=== PATIENT | male | born 1980 | race Caucasian/White ===

== ENCOUNTER 2018-08-16 14:14 | Inpatient (IN) | payer MEDICARE, MEDICAID ==
[~2018-08-16] VITALS: Ht 182.9 cm; Wt 105.0 kg
[2018-08-16 16:44] LABS: HEMATOCRIT 47.2 % (39.0-50.0); HEMOGLOBIN 16.5 g/dl (14.0-18.0); IMMATURE GRANULOCYTES 0.6 % (0.0-5.0); MEAN CELL VOLUME 89.4 fL CALC (80.0-100.0); MEAN CORPUSCULAR HGB 31.3 pG CALC (26.0-32.0); NEUT# 5.85 thou/uL (1.82-7.42); RED BLOOD COUNT 5.28 mill/uL (4.70-6.10)
[2018-08-16 16:47] LABS: ALBUMIN 4.5 g/dL (3.2-5.0); ALKALINE PHOSPHATASE 156 u/l (38-126); ANION GAP 17 (6-22 (CALC)); BILIRUBIN, TOTAL 0.9 mg/dL (0.0-1.4); BUN 13 mg/dL (9-20); BUN/CREATININE RATIO 21 (12-20 (CALC)); CARBON DIOXIDE 26 mmol/l (22-30); CHLORIDE 97 mmol/l (95-108); CREATININE 0.6 mg/dL (0.7-1.3); GFR > 60 ML/MIN (>=60 (CALC)); GFR FOR AFR.AMER. > 60 ML/MIN (>=60 (CALC)); POTASSIUM 3.3 mmol/l (3.5-5.1); SGOT/AST 21 u/l (17-59); SODIUM 137 mmol/l (137-146)
[2018-08-16] MEDS ORDERED: PERCOCET1 TA4 PO (17:15)
[2018-08-16] MEDS ORDERED: MORPHINE SUL15 MG PO (17:16)
[2018-08-16] MEDS ORDERED: LORTAB 1010 MG PO (17:16)
[2018-08-16] MEDS ORDERED: TIZANIDINE HCL4 MG PO (17:17)
[2018-08-16] MEDS ORDERED: TRESIBA FL200 UNIT/M SC (17:18)
[2018-08-16] MEDS ORDERED: AMBIEN10 MG PO (17:18)
[2018-08-16] MEDS ORDERED: NOVOLOG100 UNIT/M SC (17:19)
[2018-08-16 17:56] VITALS: BP 121/85
[2018-08-16 19:16] VITALS: BP 111/75
[2018-08-16 20:05] LABS: BARBITURATES NEGATIVE (NEGATIVE); COCAINE NEGATIVE (NEGATIVE); METHADONE NEGATIVE (NEGATIVE); OXCYCODONE POSITIVE (NEGATIVE); TETRAHYDROCANNABIONOL NEGATIVE (NEGATIVE); TRICYLIC ANTIDEPRESSANTS NEGATIVE (NEGATIVE)
[2018-08-17] VITALS (10 sets, daily range): BP systolic 113–150; BP diastolic 70–93
[2018-08-17 05:25] LABS: IMMATURE GRANULOCYTES 0.7 % (0.0-5.0); MEAN CELL VOLUME 91.5 fL CALC (80.0-100.0); MEAN CORPUSCULAR HGB 31.9 pG CALC (26.0-32.0); MEAN CORPUSCULAR HGB CONC 34.8 g/L CALC (32.0-36.0); NEUT# 2.6 thou/uL (1.82-7.42); RED BLOOD COUNT 4.36 mill/uL (4.70-6.10); RED CELL DISTRI WIDTH 12.9 % (11.5-15.5)
[2018-08-17 05:26] LABS: HEMATOCRIT 39.9 % (39.0-50.0); HEMOGLOBIN 13.9 g/dl (14.0-18.0)
[2018-08-17 05:45] LABS: ALKALINE PHOSPHATASE 121 u/l (38-126); AMYLASE 35 u/l (30-110); ANION GAP 14 (6-22 (CALC)); BILIRUBIN, TOTAL 0.7 mg/dL (0.0-1.4); BUN 13 mg/dL (9-20); BUN/CREATININE RATIO 24 (12-20 (CALC)); CARBON DIOXIDE 25 mmol/l (22-30); CHLORIDE 100 mmol/l (95-108); CREATININE 0.5 mg/dL (0.7-1.3); GFR > 60 ML/MIN (>=60 (CALC)); GFR FOR AFR.AMER. > 60 ML/MIN (>=60 (CALC)); LIPASE 58 u/l (23-300); MAGNESIUM 1.7 mg/dL (1.6-2.3); POTASSIUM 3.1 mmol/l (3.5-5.1); SGOT/AST 11 u/l (17-59); SODIUM 137 mmol/l (137-146)
[2018-08-17 05:56] LABS: ALBUMIN 3.4 g/dL (3.2-5.0); TOTAL PROTEIN 5.7 g/dL (6.3-8.2)
[2018-08-18 05:57] LABS: HEMATOCRIT 38.6 % (39.0-50.0); HEMOGLOBIN 13.2 g/dl (14.0-18.0); IMMATURE GRANULOCYTES 0.8 % (0.0-5.0); MEAN CELL VOLUME 91.5 fL CALC (80.0-100.0); MEAN CORPUSCULAR HGB 31.3 pG CALC (26.0-32.0); MEAN CORPUSCULAR HGB CONC 34.2 g/L CALC (32.0-36.0); NEUT# 2.61 thou/uL (1.82-7.42); RED BLOOD COUNT 4.22 mill/uL (4.70-6.10); RED CELL DISTRI WIDTH 12.8 % (11.5-15.5)
[2018-08-18 06:26] LABS: ALBUMIN 3.3 g/dL (3.2-5.0); ALKALINE PHOSPHATASE 109 u/l (38-126); AMYLASE 34 u/l (30-110); ANION GAP 11 (6-22 (CALC)); BILIRUBIN, TOTAL 0.6 mg/dL (0.0-1.4); BUN 11 mg/dL (9-20); BUN/CREATININE RATIO 23 (12-20 (CALC)); CARBON DIOXIDE 27 mmol/l (22-30); CHLORIDE 104 mmol/l (95-108); CREATININE 0.5 mg/dL (0.7-1.3); GFR > 60 ML/MIN (>=60 (CALC)); GFR FOR AFR.AMER. > 60 ML/MIN (>=60 (CALC)); LIPASE 68 u/l (23-300); MAGNESIUM 1.6 mg/dL (1.6-2.3); POTASSIUM 3.3 mmol/l (3.5-5.1); SGOT/AST 14 u/l (17-59); SODIUM 138 mmol/l (137-146); TOTAL PROTEIN 5.6 g/dL (6.3-8.2)
[2018-08-18 07:46] VITALS: BP 158/82
[2018-08-18 11:45] VITALS: BP 147/84
== END 2018-08-18 14:12 | disposition home or self-care (01) | DRG 264 ==
LOC: ED 14:14 → ED-I 15:26 → ED 16:28 → MS2 16:29
PROVIDERS: Emergency Medicine; ADMIT Internal Medicine Nephrology; ATTEND Internal Medicine Nephrology
PROC: 0JBR0ZZ Excision of Left Foot Subcutaneous Tissue and Fascia, Open Approach (ICD-10-PCS; principal; 2018-08-17)
DX: E11.52 Type 2 diabetes mellitus with diabetic peripheral angiopathy with gangrene (principal); L97.428 Non-pressure chronic ulcer of left heel and midfoot with other specified severity; I96 Gangrene, not elsewhere classified; E11.621 Type 2 diabetes mellitus with foot ulcer; E11.65 Type 2 diabetes mellitus with hyperglycemia; I10 Essential (primary) hypertension; E78.5 Hyperlipidemia, unspecified; F17.210 Nicotine dependence, cigarettes, uncomplicated; Z98.62 Peripheral vascular angioplasty status; Z98.1 Arthrodesis status; Z91.14 Patient's other noncompliance with medication regimen; Z91.11 Patient's noncompliance with dietary regimen; Z79.4 Long term (current) use of insulin
CPT/HCPCS: G0378; J0131; J3370

== ENCOUNTER 2018-11-11 18:44 | Inpatient (IN) | payer MEDICARE, MEDICAID ==
[~2018-11-11] VITALS: Ht 182.9 cm; Wt 106.8 kg
[~2018-11-11 18:44] MED LIST: AMBIEN10 MG PO; LORTAB 1010 MG PO; MORPHINE SUL15 MG PO; NOVOLOG100 UNIT/M SC; PERCOCET1 TA4 PO; TIZANIDINE HCL4 MG PO; TRESIBA FL200 UNIT/M SC
[2018-11-11] MEDS ORDERED: CIPROFLOXACN500 MG PO (19:21)
--- NOTE | 2018-11-11 19:23 | NUR ---
PT AMBULATORY TO ROOM WITH S.O. DECLINED WHEELCHAIR. FOOT WRAPPED FROM WOUND CARE. PT GIVEN GOWN AND INSTRUCTED TO CHANGE.
--- NOTE | 2018-11-11 19:57 | NUR ---
PT SENT TO ER FROM WOUND CARE FOR INFECTION TO LATERAL LEFT FOOT. PT STATES INFECTION HAS BEEN GOING FOR PAST YR. PT IS AOX4, STATES PAIN TO FOOT. DENIES ANY C/P, SOB, N/V OR WEAKNESS/
[2018-11-11 20:08] LABS: IMMATURE GRANULOCYTES 1.1 % (0.0-5.0); MEAN CELL VOLUME 88.7 fL CALC (80.0-100.0); MEAN CORPUSCULAR HGB 30.4 pG CALC (26.0-32.0); MEAN CORPUSCULAR HGB CONC 34.2 g/L CALC (32.0-36.0); NEUT# 8.86 thou/uL (1.82-7.42); RED BLOOD COUNT 5.04 mill/uL (4.70-6.10); RED CELL DISTRI WIDTH 14.9 % (11.5-15.5)
[2018-11-11 20:09] LABS: HEMATOCRIT 44.7 % (39.0-50.0); HEMOGLOBIN 15.3 g/dl (14.0-18.0)
[2018-11-11 20:23] LABS: ALKALINE PHOSPHATASE 125 u/l (38-126); ANION GAP 15 (6-22 (CALC)); BILIRUBIN, TOTAL 0.5 mg/dL (0.0-1.4); BUN 10 mg/dL (9-20); BUN/CREATININE RATIO 16 (12-20 (CALC)); CARBON DIOXIDE 30 mmol/l (22-30); CHLORIDE 100 mmol/l (95-108); CREATININE 0.6 mg/dL (0.7-1.3); GFR > 60 ML/MIN (>=60 (CALC)); GFR FOR AFR.AMER. > 60 ML/MIN (>=60 (CALC)); POTASSIUM 3.4 mmol/l (3.5-5.1); SGOT/AST 20 u/l (17-59); SODIUM 141 mmol/l (137-146)
[2018-11-11 20:24] LABS: ALBUMIN 4.4 g/dL (3.2-5.0); TOTAL PROTEIN 7.6 g/dL (6.3-8.2)
--- NOTE | 2018-11-11 20:41 | NUR ---
MD AT BEDSIDE TO DISCUSS ADMISSION
--- NOTE | 2018-11-11 21:23 | NUR ---
REPORT CALLED TO AMY BYRD RNACCEPTED PT
[2018-11-11 21:30] VITALS: BP 130/93
--- NOTE | 2018-11-11 21:30 | NUR ---
PT ARIVED TO THE FLOOR VIA STRETCHER ACCOMPANIED BY ER STAFF AND . PT AMBULATED FROM STRETCHER TO SCALE TO BED. VS OBTAINED AND ASSESSMENT COMPLETED. PT ALERT AND ORIENTED. RESPIRATIONS EVEN AND UNLABORED ON RA. LUNGS SOUND CLEAR. PEDAL PULSES STRONG. DRESSING TO LEFT FOOT CDI, PT STATED "MY CHANGED THE DRESSING ONCE A DAY AND THE DRESSING IS DUE TO BE CHANGED." PT CHANGED DRESSING, PHOTOS OBTAINED AND PLACE IN CHART. IV #20 RAC PATENT AND APPEARS HEALTHY. PT PROVIDED WITH A SANDWICH PER REQUEST. PT ORIENTED TO ROOM AND CALL GUTHRIE SYSTEM. CALL GUTHRIE WITHIN REACH. WILL CONTINUE TO MONITOR.
--- NOTE | 2018-11-11 21:35 | NUR ---
Admission Note Report Given to: ROCHELLE RN Transported by: Wheelchair X Stretcher Transported with: X Nurse Transporter X Patent IV O2 Director Of Marketing Analytics TRANSPORTED TO [facility] WITHOUT INCIDENT
--- NOTE | 2018-11-12 00:16 | NUR ---
PT RESTING IN BED WITH EYES CLOSED. RESPIRATIONS EVEN AND UNLABORED ON RA. NO S/S OF DISTRESS AT THIS TIME. WILL CONTINUE TO MONITOR.
[2018-11-12 03:48] VITALS: BP 121/78
--- NOTE | 2018-11-12 07:00 | NUR ---
REPORT RECEIVED FROM TIFFANIE BYRD; PT LAYING IN BED ON RT SIDE; RESP EVEN AND UNLABORED; CALL GUTHRIE IN REACH; AT BED SIDE.
[2018-11-12 07:53] VITALS: BP 157/90
--- NOTE | 2018-11-12 07:53 | NUR ---
Vancomycin consult Serum creatinine: 1 mg/dL Height: 72.0 Inches Weight (kg): 106.8 IBW (kg): 77.60 Dosing wt(kg): 106.8 Estimated Creatinine clearance (ml/min): 107.8 Vd (liters): 74.8 (factor used: 0.7 L/kg) Dm (hr-1): 0.094 Half life (hrs): 7.37 Vancomycin 1250 mg q 8 hrs with an expected Cpeak of 29 mcg/ml and an expected Ctrough of 16 mcg/ml
--- NOTE | 2018-11-12 08:02 | NUR ---
PT SITTING UP IN BED WATCHING TV; A/O X3; #20G RAC, NS@100CC/HR; SITE APPEARS HEALTY; DRESSING TO LT FOOT CDI; C/O OF PAIN 11/20, MEDICATED PER EMAR; VOICE NO OTHER CONCERNS; AT BEDSIDE; SAFETY PRECAUTION REINFORCE; CALL GUTHRIE IN REACH.
--- NOTE | 2018-11-12 08:52 | NUR ---
PT APPEARS TO BE SLEEPING, AT BEDSIDE.
--- NOTE | 2018-11-12 09:44 | NUR ---
PT AWAKE, VANCO INFUSING; VOICE NO CONCERNS;
--- NOTE | 2018-11-12 10:14 | NUR ---
DID DRESSING CHANGE TO LEFT FOOT;
--- NOTE | 2018-11-12 11:41 | NUR ---
PT SITTING UP IN BED EATING LUNCH; VANCO INFUSING WITHOUT DIFFICULTY; VOICE NO CONCERNS; MULTIPLE FAMILIES IN ROOM; CALL GUTHRIE IN REACH
[2018-11-12 14:30] VITALS: BP 165/93
--- NOTE | 2018-11-12 16:22 | NUR ---
PT SITTING UP IN BED WATCHING TV; RESP EVEN AND UNLABORED ON ROOM AIR; IVF INFUSING WITHOUT DIFFICULTY; DRESSING TO LEFT FOOT CDI; VOICE NO CONCERNS; AT BEDSIDE; CALL GUTHRIE IN REACH
[2018-11-12 18:20] VITALS: BP 145/94
--- NOTE | 2018-11-12 19:05 | NUR ---
REPORT RECIEVED FROM RANI SANCHEZ. PT RESTING IN BED, ALERT AND ORIENTED. NO S/S OF DISTRESS AT THIS TIME. SAFETY PRECAUTIONS IN PLACE. WILL CONTINUE TO MONITOR.
[2018-11-12 19:37] VITALS: BP 144/91
--- NOTE | 2018-11-12 19:52 | NUR ---
PT RESTING IN BED ALERT AND ORIENTED. RESPIRATIONS EVEN AND UNLABORED ON RA. LUNGS SOUND CLEAR. PEDAL PULSES STRONG. PT EDUCATED ON DIET AND POC, PT TO BE NPO AFTER MIDNIGHT. CALL GUTHRIE WITHIN REACH. WILL CONTINUE TO MONITOR.
[2018-11-13] VITALS (12 sets, daily range): BP systolic 136–165; BP diastolic 71–96
--- NOTE | 2018-11-13 | NUR ---
PT RESTING IN BED. PT EDUCATED ON POC AND NPO DIET. SAFETY PRECAUTIONS IN PLACE. WILL CONTINUE TO MONITOR.
--- NOTE | 2018-11-13 04:32 | NUR ---
PT RESTING IN BED. RESPIRATIONS EVEN AND UNLABORED ON RA. SAFETY PRECAUTIONS IN PLACE. WILL CONTINUE TO MONITOR.
[2018-11-13 05:30] LABS: MEAN CELL VOLUME 89.2 fL CALC (80.0-100.0); MEAN CORPUSCULAR HGB CONC 33.6 g/L CALC (32.0-36.0); RED BLOOD COUNT 4.37 mill/uL (4.70-6.10); RED CELL DISTRI WIDTH 14.6 % (11.5-15.5)
[2018-11-13 05:35] LABS: HEMOGLOBIN 13.1 g/dl (14.0-18.0)
[2018-11-13 05:45] LABS: INTERNATIONAL NORMALIZED RATIO 0.9 RATIO (0.7-1.3); PROTHROMBIN TIME 9.9 SECONDS (9.0-12.5)
[2018-11-13 06:07] LABS: ANION GAP 12 (6-22 (CALC)); BUN 8 mg/dL (9-20); BUN/CREATININE RATIO 16 (12-20 (CALC)); CARBON DIOXIDE 24 mmol/l (22-30); CHLORIDE 105 mmol/l (95-108); CREATININE 0.5 mg/dL (0.7-1.3); GFR > 60 ML/MIN (>=60 (CALC)); GFR FOR AFR.AMER. > 60 ML/MIN (>=60 (CALC)); POTASSIUM 3.7 mmol/l (3.5-5.1); SODIUM 138 mmol/l (137-146)
--- NOTE | 2018-11-13 07:21 | NUR ---
REPORT RECEIVED FROM TIFFANIE BYRD; PT APPEARS TO BE SLEEPING; RESP EVEN AND UNLABORED; NPO; NEW IVF HUNG; PRESENT; CALL GUTHRIE IN REACH.
--- NOTE | 2018-11-13 07:54 | NUR ---
PT GOING DOWN TO OR VIA STRETCHER IN IN STABLE CONDITION ACCOMPANIED BY OR STAFF;
--- NOTE | 2018-11-13 09:38 | NUR ---
Vancomycin consult Weight: 106.79 Kilograms Current dose being given: 1250 mg Current dosing interval: 8 hrs Current infusion time (hrs): 2 Trough level obtained: 12 mcg/ml Timing of trough - # of hrs before next dose: 0.5 Hrs New rate constant (jermaine): 0.116 hr-1 Half-life: 5.98 Hours Vd from levels: 74.75 Liters (0.7 L/kg) CLvanco= 8.671 L/hr Vancomycin 1500 mg q 8 hrs. Infuse over 2 hrs Expected Cpeak: 30 mcg/mL Expected Ctrough: 15 mcg/mL
--- NOTE | 2018-11-13 11:34 | NUR ---
PT ARRIVED TO FLOOR @1120 VIA STRETCHER IN STABLE CONDITION ACCOMPANIED BY OR STAFF; PT ASSISTED TO BED; 02@2L NC; IFV INFUSING WITHOUT DIFFICULTY; VITALS OBTAINED BY CUSTOM FRAMING SPECIALIST; DRESSING ON LT FOOT SECURE, CDI, ELVATED ON PILLOWS; SCD TO BILAT LEGS; PT EDUCATED OF NWT, VERBALIZE UNDERSTANDING; EXPLAINED CLEAR LIQ DIET; VOICE NO CONCERNS; MULTIPLE FAMILIES IN ROOM; CALL GUTHRIE AND URINAL IN REACH.
--- NOTE | 2018-11-13 12:09 | NUR ---
PT SITTING UP IN BED; ZOSYN INFUSING WITHOUT DIFFICULTY; MEDICATED PER EMAR; LEG REMAIN ELEVATED; SCD TO RT LEG ONLY; VOIDED 400CC, CLEAR, YELLOW IN URINAL; MULTIPLE FAMILIES IN ROOM; VOICE NO CONCERNS; CALL GUTHRIE IN REACH.
--- NOTE | 2018-11-13 12:43 | NUR ---
PT TOLERATED LUNCH WELL, NO N/V; PAIN SCALE THE SAME; ENCOURAGE PT TO DEEP BREATH AND TRY TO RELAX; WILL CONTINUE TO MONITOR.
--- NOTE | 2018-11-13 15:19 | NUR ---
PT MEDICATED FOR PAIN 12/21; SCHEDULED MEDS EXPLAINED; REQ ICECREAM AND G/CRACKERS, PROVIDED; IVF INFUSING WELL; LT LEG REMAIN ELEVATED; VOIDING CLEAR, YELLOW URINE IN URINAL; CALL GUTHRIE IN REACH.
--- NOTE | 2018-11-13 16:10 | NUR ---
PT SITTING UP IN BED MUNCHING ON SNACKS AND WATCHING TV; REPORT FEELS RELIEF WITH PAIN MEDS; VOICE NO CONCERNS; AT BEDSIDE;
--- NOTE | 2018-11-13 20:00 | NUR ---
PATIENT RESTING IN BED WITH LEFT FOOT ELEVATED ON PILLOWS.AWAKE ALERT AND ORIENTEDX3 WITH LITTLE RELIEF FROM EARLIER PAIN MEDS. PATIENT WITH LEFT FOOT ELEVATED ON PILLOWS. POST-OP DRESSING IS INTACT SECURED WITH ISA WRAP. CMS TO LEFT TOES WNL. IV SITE TO RIGHT AC INTACT WITH VANCO INFUSING ORDERED. SITE APPEARS HEALTHY AT THIS TIME. AT BEDISDE VISITING. SAFETY PRECAUTIONS REINFORCED. CALL LIGHT IN REACH. WILL CONT TO MONITOR.
--- NOTE | 2018-11-13 21:00 | NUR ---
PATIENT RESTING IN BED-MEDICATED WITH LORTAB 10/325MG AND SCHEDULED MS CONTIN FOR LEFT FOOT PAIN. FOOT REMAINS ELEVATED. CALL LIGHT IN REACH.WILL CONT TO MONITOR.
--- NOTE | 2018-11-13 23:45 | NUR ---
PATIENT RESTING IN BED-C/O LEFT FOOT PAIN-MEDICATED WITH DILAUDID 1MG IVP FOR 9/10 ON PAIN SCALE. ALSO RECIEVED SONATA 5MG PO FOR SLEEP. PATIENT WITH LEFT FOOT ELEVATED ON PILLOWS WITH DRESSING INTACT AND SECURED WITH ISA WRAP. CMS TO TOES WNL. VOIDING QS YELLOW URINE IN URINAL. IVF PATENT AND INFUSING AT 100CC/HR VIA RIGHT AC SITE. SITE IS HEALTHY AT THIS TIME. PATIENT IS REFUSING SCD'S AT THIS TIME. ACCU-CHECK 229. RESTING AT BEDSIDE ON COT PROVIDED. SAFETY PRECAUTIONS REINFORCED. CALL LIGHT IN REACH. WILL CONT TO MONITOR.
[2018-11-14 03:15] VITALS: BP 128/85
--- NOTE | 2018-11-14 03:19 | NUR ---
PATIENT RESTING IN BED AT THIS TIME WITH LEFT ELEVATED ON PILLOWS. DRESSING REMAINS INTACT AND SECURED WITH ISA WRAP. IV VANCO HUNG ORDERED VIA RIGHT AC SITE. CALL LIGHT IN REACH. WILL CONT TO MONITOR.
[2018-11-14 05:48] LABS: HEMATOCRIT 36.1 % (39.0-50.0); HEMOGLOBIN 12.2 g/dl (14.0-18.0); IMMATURE GRANULOCYTES 0.3 % (0.0-5.0); MEAN CELL VOLUME 89.1 fL CALC (80.0-100.0); MEAN CORPUSCULAR HGB 30.1 pG CALC (26.0-32.0); MEAN CORPUSCULAR HGB CONC 33.8 g/L CALC (32.0-36.0); NEUT# 3.47 thou/uL (1.82-7.42); RED BLOOD COUNT 4.05 mill/uL (4.70-6.10); RED CELL DISTRI WIDTH 14.5 % (11.5-15.5)
[2018-11-14 06:07] LABS: BUN 5 mg/dL (9-20); BUN/CREATININE RATIO 11 (12-20 (CALC)); CHLORIDE 103 mmol/l (95-108); CREATININE 0.5 mg/dL (0.7-1.3); GFR > 60 ML/MIN (>=60 (CALC)); GFR FOR AFR.AMER. > 60 ML/MIN (>=60 (CALC)); POTASSIUM 3.5 mmol/l (3.5-5.1); SODIUM 138 mmol/l (137-146)
[2018-11-14 06:08] LABS: ANION GAP 10 (6-22 (CALC))
[2018-11-14 06:09] LABS: CARBON DIOXIDE 29 mmol/l (22-30)
[2018-11-14 07:30] VITALS: BP 133/74
--- NOTE | 2018-11-14 07:30 | NUR ---
ASSESSMENT IS COMPLETED: IV SITE IS FREE FROM REDNESS OR EDEMA. HR IS REG, PULSES ARE STRONG X4, ABD IS SOFT WITH ACTIVE BS. BREATH SOUNDS ARE CLEAR BILATERALLY. DRESSING ON LEFT FOOT IS CDI , PT C/O THROBBING CONTINUE TO OSBERVE AND MONITOR FAMILY IN THE ROOM.
[2018-11-14 11:05] VITALS: BP 144/74
--- NOTE | 2018-11-14 12:30 | NUR ---
PT IS RELAXING IN BED WITH NO DISTRESS NOTED. IV SITE IS FREE FROM REDNESS OR EDEMA.
--- NOTE | 2018-11-14 16:10 | NUR ---
PT IS RELAXING IN BED FAMILY IN THE ROOM. IV SITE IS FREE FROM REDNESS OR EDEMA.
[2018-11-14 16:50] VITALS: BP 142/79
--- NOTE | 2018-11-14 20:20 | NUR ---
PATIENT RESTING IN BED AT THIS TIME WITH LEFT FOOT ELEVATED ON PILLOWS. DRESSING TO LEFT FOOT INTACT AND SECURED WITH ISA WRAP. CMS TO LEFT TOES WNL. IV SITE TO RIGHT AC INTACT WITH IVF NS PATENT AND INFUSING AT 100CC/HR. SITE REMAINS HEALTHY AT THIS TIME. PATIENT STATEES THAT HE DID HAVE A BM TONIGHT-MODERATE AMT OF BROWN STOOL. PATIENT MEDICATED FOR PAIN WITH DILAUDID 1MG IVP ORDERED. VOIDING QS YELLOW URINE IN URINAL. SAFETY PRECAUTIONS REINFORCED. CALL LIGHT IN REACH. WILL CONT TO MONITOR.
[2018-11-14 20:22] VITALS: BP 151/93
--- NOTE | 2018-11-14 21:20 | NUR ---
ACCU-CHECK WAS 194-SPOKE WITH DR. FRANKEL AND PM DOSE OF LEVEMIR ADJUSTED. PATIENT RECIEVED LEVEMIR 80UNITS SQ PER DR. FRANKEL ORDERS. HS SNOACK PROVIDED. PATIENT STILL WITH SEVERE POST-OP PAIN--12/21. MEDICATED WITH LORTAB 10/325MG PO FOR PAIN. RESTING ON COT PROVIDED AT BEDSIDE. LEFT FOOT REMAINS ELEVATED. CMS WNL. SAFETY PRECAUTIONS REINFORCED. CALL LIGHT IN REACH. WILL CONT TO MONITOR.
--- NOTE | 2018-11-14 23:29 | NUR ---
PATIENT RESTING IN BED WITH EYES CLOSED AND AT BEDSIDE-CALLED FOR PAIN MEDS-8/10 ON PAIN SCALE TO LEFT FOOT-MEDICATED WITH DILAUDID 1MG IVP VIA RIGHT IV SITE. SITE REMAINS HEALTHY. LEFT FOOT REMAINS ELEVATED ON PILLOWS-DRESSING INTACT AND SECURED WITH ISA WRAP. CMS TO LEFT TOES WNL. CALL LIGHT IN REACH. WILL CONT TO MONITOR.
[2018-11-14 23:50] VITALS: BP 139/79
--- NOTE | 2018-11-15 01:06 | NUR ---
PATIENT CALLED REQUESTING PAIN MEDS AGAIN. 9/10 ON PAIN SCALE. PATIENT CONT TO HAVE ONLY MINIMAL RELIEF FROM DILAUDID EVEN THOUGH IT IS BEING REUESTED AND GIVEN Q2H. ATTEMPT TO EDUCATE PATIENT REGUARDING POTENTIAL INCREASED TOLERANCE AND OTHER POTENTIAL COMPLICATIONS FROM FOUNDRY TENDER USE OF IV NARCOTICS AND THE POSSIBLE DELAY IN DISCHARGE BECAUSE OF IT. PATIENT WITH NO RESPONCE TO EDUCATION. CALL LIGHT IN REACH. WILL CONT TO MONITOR.
--- NOTE | 2018-11-15 03:04 | NUR ---
PATIENT RESTING IN BED -VAQNCO HUNG ORDERED VIA RIGHT AC SITE. PATIENT WITH NO COMPLAINTS AT THIS TIME. RESTING ON COT PROVIDED. LLE REMAINS ELEVATED ON PILLOWS AND DRESSING REMAINS INTACT AND SECURED WITH ISA WRAP. CMS TO LEFT TOES WNL. PATIENT IS VOIDING IN URINAL. SAFETY PRECAUTIONS REINFORCED. CALL LIGHT IN REACH. WILL CONT TO MONITOR.
[2018-11-15 03:34] VITALS: BP 140/88
--- NOTE | 2018-11-15 03:41 | NUR ---
PATIENT CALLED AND REQUESTING PAINMED FOR 8/10 PAIN SCALE TO LEFT FOOT AND CHRONIC BACK PAIN. MEDICATED WITH DILAUDID 1MG IVP ORDERED. FOOT REMAINS ELEVATED ON PILLOWS. RESTING ON COT PROVIDED AT BEDSIDE. CALL LIGHT IN REACH. WILL CONT TO MONITOR.
[2018-11-15 05:03] LABS: HEMATOCRIT 36.5 % (39.0-50.0); HEMOGLOBIN 12.2 g/dl (14.0-18.0); IMMATURE GRANULOCYTES 0.4 % (0.0-5.0); MEAN CELL VOLUME 88.8 fL CALC (80.0-100.0); MEAN CORPUSCULAR HGB 29.7 pG CALC (26.0-32.0); MEAN CORPUSCULAR HGB CONC 33.4 g/L CALC (32.0-36.0); NEUT# 2.52 thou/uL (1.82-7.42); RED BLOOD COUNT 4.11 mill/uL (4.70-6.10); RED CELL DISTRI WIDTH 14.6 % (11.5-15.5)
[2018-11-15 05:22] LABS: ANION GAP 10 (6-22 (CALC)); BUN 4 mg/dL (9-20); BUN/CREATININE RATIO 8 (12-20 (CALC)); CARBON DIOXIDE 31 mmol/l (22-30); CHLORIDE 102 mmol/l (95-108); CREATININE 0.5 mg/dL (0.7-1.3); GFR > 60 ML/MIN (>=60 (CALC)); GFR FOR AFR.AMER. > 60 ML/MIN (>=60 (CALC)); POTASSIUM 3.2 mmol/l (3.5-5.1); SODIUM 139 mmol/l (137-146)
[2018-11-15 07:32] VITALS: BP 150/84
--- NOTE | 2018-11-15 07:39 | NUR ---
REPORT RECEIVED FROM TIFFANIE DOOLEY; PT SITTING UP IN BED WITH EYES CLOSED; RESP EVEN AND UNLABORED ON ROOM AIR; ASSESSMENT COMPLETED; IVF INFUSING WITHOUT DIFFICULTY; SITE APPEARS HEALTHY; LT LEG ELEVATED ON PILLOW; DRESSING CDI; EMPTIED 300CC CLEAR, YELLOW URINE FROM URINAL; PT INQUIRE ABOUT PAIN MEDS, EXPLAINED; CALL GUTHRIE IN REACH; AT BEDSIDE; WILL CONTINUE TO MONITOR.
--- NOTE | 2018-11-15 11:15 | NUR ---
PT SITTING UP IN BED AWAKE; DRESSING REMOVED BY DR ESPINOZA; NEW DRESSING APPLIED PER ORDER; PT TOLERATED WELL.
--- NOTE | 2018-11-15 11:20 | NUR ---
PT OFF FLOOR VIA W/C IN STABLE CONDITION, ACCOMPANIED BY PRODUCTION MECHANIC
--- NOTE | 2018-11-15 12:03 | NUR ---
PT RETURNED TO FLOOR VIA W/C IN STABLE CONDITION ACCOMPANIED BY A VOLUNTEER; PT ASSISTED INTO BED BY CITY LIBRARY DIRECTOR;
--- NOTE | 2018-11-15 12:10 | NUR ---
SINGLE LUMEN PICC TO TIFFANY, FLUSHED WELL, DRESSING INTACT;
[2018-11-15 16:02] VITALS: BP 141/89
--- NOTE | 2018-11-15 16:30 | NUR ---
PT SITTING UP IN BED VISITING WITH FAMILY; MEDICATED FOR PAIN 11/20; IVF INFUSING WIHTOUT DIFFICULTY; LT LEG ELEVATED ON PILLOW; CALL GUTHRIE AND URINAL IN REACH;
--- NOTE | 2018-11-15 17:48 | NUR ---
MEDICATED PER EMAR; ZOSYN INFUSING WITHOUT DIFFICULTY; LEG ELEVATED ON A PILLOW; ABOUT TO EAT SUPPER; AT BED SIDE; CALL GUTHRIE IN REACH.
[2018-11-15 19:11] VITALS: BP 141/94
--- NOTE | 2018-11-15 19:17 | NUR ---
PATIENT RESTING IN BED AT T HIS TIME WITH AT BEDSIDE. PATIENT IS AWAKE ALERT AND ORIENTEDX3. LEFT FOOT ELEVATED ON PILLOWS WITH DRESSING TO LEFT FOOT CLEAN DRY AND INTACT. PATIENT STATES THAT HIS PAIN IS 6/10 AT THIS TIME AFTER BEING MEDICATED EARLIER. PATIENT STATES THAT THE DILAUDID ONLY HELPS FOR ABOUT 90 MINUTES THEN WEARS OFF. EXPLAINED TO PATIENT AND THAT THE IV PAIN MEDS WORK FASTER BUT NOT LONG ORAL PAIN MEDS.PICC TO RIGHT UPPER ARM INTACT WITH VANCO INFUSING AT THIS TIME. SITE APPEARS HEALTHY AT THIS TIME. SAFETY PRECAUTIONS REINFOROCED. CALL LIGHT IN REACH. WILL CONT TO MONITOR.
--- NOTE | 2018-11-15 20:45 | NUR ---
PATIENT RESTING IN BED-REQUESTING PAIN MEDS-MEDICATED WITH DILAUDID 1MG IVP ORDERED 2QH. LEFT FOOT ELEVATED ON PILLOWS WITHDRESSING CDI AT THIS TIME. REMAINS AT BEDSIDE. CALL LIGHT IN REACH. WILL CONT TO MONITOR.
--- NOTE | 2018-11-15 21:15 | NUR ---
ACCU-CHECK IS 279-MEDICATED WITH LEVEMIR 80 UNITS SQ AND NOVALOG 3UNITS SQ ORDERED. MEDICATED WITH MS CONTIN 15MG PO, LORTAB 10/325MG PO AND WITH SONATA 5MG PO FOR SLEEP. CALL LIGHT IN REACH. WILL CONT TO MONITOR.
--- NOTE | 2018-11-15 23:00 | NUR ---
PATIENT RESTING IN BED REQUESTING PAIN MEDS-MEDICATED WITH DILAUDID 1MG IVP FOR SEVERE LEFT FOOT PAIN. IVF PATENT AND INFUSING VIA RIGHT UPPER ARM PICC AT 100CC/HR. SITE REMAINS HEALTHY. LEFT FOOT ELEVATED ON PILLOWS. CALL LIGHT IN REACH. WILL CONT TO MONITOR.
[2018-11-15 23:52] VITALS: BP 141/81
--- NOTE | 2018-11-16 01:00 | NUR ---
PATIENT CALLED REQUESTING PAIN MEDS FOR LEFT FOOT PAIN-9/10 ON PAIN SCALE. PATIENT MEDICATED WITH DILAUDID 1MG IVP FOR POST-OP LEFT FOOT PAIN. FOOT REMAINS ELEVATED. APPEARS SLEEPING AT BEDSIDE. CALL LIGHT IN REACH. WILL CONT TO MONITOR.
--- NOTE | 2018-11-16 03:18 | NUR ---
PATIENT CALLED REQUESTING PAIN MEDS-OFFERED PATIENT PO PAIN MEDS IN PREPARATION FOR POSS DISCHARGE BUT STATES THAT HE WILL MAYBE DO THAT LATER. DILAUDID 1MG IVP GIVEN FOR SEVERE LEFT FOOT PAIN. LEFT FOOT REMAINS ELEVATED ON PILLOWS. IV VANCO HUNG ORDERED VIA RIGHT UPPER ARM PICC. REMAINS RESTING ON COT PROVIDED AT BEDSIDE. PATIENT PAROVIDED WITH APPLE JUICE REQUESTED. CALL LIGHT IN REACH. WILL CONT TO MONITOR
[2018-11-16 04:00] VITALS: BP 145/87
[2018-11-16 06:18] LABS: ANION GAP 11 (6-22 (CALC)); BUN 5 mg/dL (9-20); BUN/CREATININE RATIO 9 (12-20 (CALC)); CARBON DIOXIDE 32 mmol/l (22-30); CHLORIDE 103 mmol/l (95-108); CREATININE 0.6 mg/dL (0.7-1.3); GFR > 60 ML/MIN (>=60 (CALC)); GFR FOR AFR.AMER. > 60 ML/MIN (>=60 (CALC)); POTASSIUM 3.3 mmol/l (3.5-5.1); SODIUM 142 mmol/l (137-146)
[2018-11-16 07:36] VITALS: BP 154/97
--- NOTE | 2018-11-16 07:36 | NUR ---
PT A/O X3. SPEECH IS CLEAR. RESP EVEN AND UNLABORED. LUNG SOUNDS CLEAR. BOWEL SOUNDS ACTIVE X4. STRONG RADIAL AND PEDAL PULSES. PICC TIFFANY NS @100. SITE APPEARS HEALTHY. LT FOOT DRESSING CDI; ELEVATED ON A PILLOW. PT C/O THROBBING LT FOOT PAIN; 9 OUT OF 10 ON PAIN SCALE. 1 MG DILAUDID IV GIVEN. REPOSITIONED FOR COMFORT. PT DENIES ANY FURTHER NEEDS. POC DISCUSSED. SAFETY PRECAUTIONS IN PLACE. CALL LIGHT IN REACH. WILL CONTINUE TO MONITOR.
--- NOTE | 2018-11-16 10:05 | NUR ---
PT MEDICATED FOR C/O LEFT FOOT PAIN 9/10 PAIN SCALE; SPOUSE AT BEDSIDE; CALL GUTHRIE WITHIN REACH; WILL CONTINUE TO MONITOR.
[2018-11-16] MEDS ORDERED: DAPTOMYCIN500 MG IV (10:20)
--- NOTE | 2018-11-16 13:35 | NUR ---
D/C INSTRUCTIONS DISCUSSED W/ PT. PT STATES UNDERSTANDING. IV REMOVED. CATHETER INTACT. DRESSING CHANGE DONE. PT GETTING DRESSED.
--- NOTE | 2018-11-16 13:56 | NUR ---
Discharge instructions given. Patient verbalizes understanding of same. Discharged in stable condition via Wheelchair to Home with spouse. All belongings sent with pt.
== END 2018-11-16 13:56 | disposition home health service (06) | DRG 617 ==
LOC: ED 18:44 → ED-I 20:32 → ED 20:44 → MS2 20:45
PROVIDERS: Family Medicine; Nurse Practitioner Family; ADMIT Internal Medicine; ATTEND Internal Medicine
PROC: 0Y6N0ZF Detachment at Left Foot, Partial 5th Ray, Open Approach (ICD-10-PCS; principal; 2018-11-11)
PROC: 02HV33Z Insertion of Infusion Device into Superior Vena Cava, Percutaneous Approach (ICD-10-PCS; 2018-11-15)
PROC: B518ZZA Fluoroscopy of Superior Vena Cava, Guidance (ICD-10-PCS; 2018-11-15)
DX: E11.69 Type 2 diabetes mellitus with other specified complication (principal); M86.9 Osteomyelitis, unspecified; L97.429 Non-pressure chronic ulcer of left heel and midfoot with unspecified severity; E11.621 Type 2 diabetes mellitus with foot ulcer; E11.65 Type 2 diabetes mellitus with hyperglycemia; I10 Essential (primary) hypertension; G89.4 Chronic pain syndrome; F17.200 Nicotine dependence, unspecified, uncomplicated; Z79.4 Long term (current) use of insulin
CPT/HCPCS: J0131; J0878; J3370

== ENCOUNTER 2019-03-02 12:27 | Inpatient (IN) | payer MEDICARE, MEDICAID ==
[2019-03-02] VITALS (10 sets, daily range): BP systolic 116–137; BP diastolic 71–81
[~2019-03-02] VITALS: Ht 182.9 cm; Wt 110.4 kg
[~2019-03-02 12:27] MED LIST changes: +CIPROFLOXACN500 MG PO; +DAPTOMYCIN500 MG IV
--- NOTE | 2019-03-02 12:52 | NUR ---
PT TO ROOM VIA WC
--- NOTE | 2019-03-02 13:20 | NUR ---
PT STATES THAT HIS LEFT FOOT STARTED SWELLING OVER THE LAST FEW DAYS, AND LAST NIGHT IT BEGAN TURNING DARK ON THE GREAT TOE. PT HAS REDNESS AND SWELLING UP TO THE ANKLE OF THE LEFT FOOT. SMALL OPENING WITH BLOOD ON THE MEDIAL SIDE OF THE FOOT JUST BEFORE THE GREAT TOE. PT HAS PAIN RADIATING UP TO THE LEFT GROIN. PT STATED BEING NAUSEATED AND VOMITING YESTERDAY, STILL NAUSEATED TODAY. PT IS AOX4. DENIES ANY C/P, SOB.
[2019-03-02 13:44] LABS: HEMATOCRIT 37.3 % (39.0-50.0); HEMOGLOBIN 12.5 g/dl (14.0-18.0); IMMATURE GRANULOCYTES 1.6 % (0.0-5.0); MEAN CORPUSCULAR HGB 31.6 pG CALC (26.0-32.0); MEAN CORPUSCULAR HGB CONC 33.5 g/L CALC (32.0-36.0); NEUT# 16.31 thou/uL (1.82-7.42); RED BLOOD COUNT 3.95 mill/uL (4.70-6.10); RED CELL DISTRI WIDTH 14.5 % (11.5-15.5)
[2019-03-02 14:06] LABS: BUN 16 mg/dL (9-20); BUN/CREATININE RATIO 24 (12-20 (CALC)); CHLORIDE 93 mmol/l (95-108); CREATININE 0.7 mg/dL (0.7-1.3); GFR > 60 ML/MIN (>=60 (CALC)); GFR FOR AFR.AMER. > 60 ML/MIN (>=60 (CALC)); SODIUM 134 mmol/l (137-146)
[2019-03-02 14:07] LABS: ANION GAP 20 (6-22 (CALC)); CARBON DIOXIDE 24 mmol/l (22-30); POTASSIUM 2.5 mmol/l (3.5-5.1)
[2019-03-02 14:13] LABS: MEAN CELL VOLUME 94.4 fL CALC (80.0-100.0)
--- NOTE | 2019-03-02 14:20 | NUR ---
PT RESTING ON STRETHCER, PT STATES PAIN IS ONLY SLIGHTLY DECREASING
--- NOTE | 2019-03-02 15:20 | NUR ---
PT MEDICATIONS STARTED IN CENTRAL LINE. PT STATES LAST MEAL WAS YESTERDAY AFTERNOON. INFORMED OF OR TEAM BEING CALLED IN
--- NOTE | 2019-03-02 15:48 | NUR ---
ANASETHISA AT BEDSIDE
--- NOTE | 2019-03-02 16:16 | NUR ---
OR NURSE AT BEDSIDE- REPORT GIVEN TO BREANA MORENO. PT TRANSFERED TO OR STRETCHER. PT DEPARTED ER
--- NOTE | 2019-03-02 16:39 | NUR ---
REPORT CALLED TO CHELA- GENE MORENO ACCEPTED PT
--- NOTE | 2019-03-02 17:22 | NUR ---
LACTIC ACID LEVEL IS 3.8 INFORMED DAM RN AND OR AND THEY NEED TO SPEAK TO HIM.
--- NOTE | 2019-03-02 18:47 | NUR ---
PT ARRIVED TO UNIT VIA STRETCHER WITH ER STAFF; EYES CLOSED AND ANSWERING QUESTIONS. SCOOTED SELF FROM STRETCHER TO BED INDEPENDENTLY. C/O SEVERE LEFT FOOT PAIN. RESPIRATIONS EVEN AND UNLABORED ON OXYGEN 2L VIA NC. BEDSIDE REPORT RECEIVED FROM TIFFANIE ESPINOZA. PT OREINTED TO ROOM AND CALL LIGHT SYSTEM. ANSWERED ALL ADMISSION QUESTIONS. DILAUDID ADMINSTERED FOR PAIN. PLAN OF CARE REVIEWED. PT ENCOURAGED TO VERBALIZE CONCERNS. STATES UNDERSTANDING. SAFETY MEASURES IN PLACE. CALL LIGHT WITHIN REACH.
--- NOTE | 2019-03-02 20:00 | NUR ---
FAMILY AT BEDSIDE. PT STATES THAT DILAUDID WAS SOMEWHAT HELPFUL, BUT HIS PAIN IS BACK UP TO A 10. PT REPORTS THAT HE TAKES HYDROCODONE AND MORPHINE SULFATE AT HOME FOR CHRONIC BACK PAIN. ANOTHER DOSE OF DILAUDID ADMINISTERED; ORDERED PRN HOURLY. LEFT FOOT ELEVATED ON PILLOW; RIGHT LEG WITH SCD. PT SKIN IS HOT AND MOIST; ARRIVED WITH TEMP OF 100.4 WHICH IS LOWER THAN IN OR WHERE HE RECEIVED IV TYLENOL. TRIPLE LUMEN RIGHT IJ DRESSING IS CDI AND IV SITE TO LFA ALSO APPEARS HEALTHY AND FLUSHES. LUNGS ARE CLEAR; ABDOMEN DISTENDED AND SOFT. ACCU CHECK 292. WILL CONTINUE TO MONITOR.
--- NOTE | 2019-03-02 20:43 | NUR ---
PT UP TO BSC FOR BOWEL MOVEMENT; INSTRUCTED TO NOT BEAR WEIGHT ON LEFT FOOT; WHEN REPOSITIONED BACK INTO BED SMALL AMOUNT OF BLOOD NOTED ON FLOOR AND ON DRESSING. REINFORCED WITH EDUIN AND COBSAY; WILL CONTINUE TO MONITOR. PT NOW REPORTING 10/10 LEFT FOOT PAIN; WILL MEDICATE WHEN POSSIBLE.
--- NOTE | 2019-03-02 21:45 | NUR ---
LAB AT BEDSIDE. PT ATE JELLO AND TOLERATED WELL. REMAINS AT BEDSIDE.
[2019-03-02 22:44] LABS: BUN 16 mg/dL (9-20); BUN/CREATININE RATIO 26 (12-20 (CALC)); CARBON DIOXIDE 27 mmol/l (22-30); CHLORIDE 99 mmol/l (95-108); CREATININE 0.6 mg/dL (0.7-1.3); GFR > 60 ML/MIN (>=60 (CALC)); GFR FOR AFR.AMER. > 60 ML/MIN (>=60 (CALC)); SODIUM 134 mmol/l (137-146)
[2019-03-02 22:45] LABS: ANION GAP 11 (6-22 (CALC)); MAGNESIUM 2.1 mg/dL (1.6-2.3); POTASSIUM 3.3 mmol/l (3.5-5.1)
--- NOTE | 2019-03-02 23:53 | NUR ---
TEMPERATURE DOWN TO 97.4. HAS BEEN RECEIVING DILAUDID HOURLY PER REQUEST; PAIN SEEMS TO BE MORE MANAGED NOW REPORTING 11/20 INSTEAD OF 01/20. UP AGAIN TO BS FOR LOOSE BOWEL MOVEMENT.
[2019-03-03] VITALS (16 sets, daily range): BP systolic 117–160; BP diastolic 68–96
--- NOTE | 2019-03-03 00:37 | NUR ---
PT AWAKE AND TALKING TO AT BEDSIDE. STATES THAT LAST DOSE OF DILAUDID DECREASED HIS PAIN FROM AN 8/10 TO CURRENTLY A 7/10. REQUESTS TO RECEIVE ANOTHER 1MG WHEN HE IS ABLE TO HAVE IT.
--- NOTE | 2019-03-03 03:00 | NUR ---
PT SITTING UP ON EDGE OF BED MASSAGING HIS LEFT LEG; C/O 10/10 FOOT PAIN AND REQUESTS PAIN MEDICATION. RESPIRATIONS ARE EVEN AND UNLABORED WITH NO SOB. VSS. CONTINUES TO RECEIVE MEDICATION HOURLY FOR PAIN. IV FLUIDS INFUSING PER ORDERS. NO OTHER REQUESTS OR CONCERNS. SAFETY MEASURES IN PLACE. CALL LIGHT WITHIN REACH.
--- NOTE | 2019-03-03 05:27 | NUR ---
LABS DRAWN FROM CENTRAL LINE AND FLUSHES PER PROTOCOL. DILAUDID ALSO GIVEN FOR 10/10 LEFT FOOT PAIN.
[2019-03-03 05:31] LABS: IMMATURE GRANULOCYTES 2.1 % (0.0-5.0); MEAN CELL VOLUME 95.3 fL CALC (80.0-100.0); MEAN CORPUSCULAR HGB 31.6 pG CALC (26.0-32.0); MEAN CORPUSCULAR HGB CONC 33.2 g/L CALC (32.0-36.0); NEUT# 9.6 thou/uL (1.82-7.42); RED BLOOD COUNT 3.16 mill/uL (4.70-6.10); RED CELL DISTRI WIDTH 14.8 % (11.5-15.5)
[2019-03-03 05:35] LABS: HEMATOCRIT 30.1 % (39.0-50.0)
[2019-03-03 05:46] LABS: ALKALINE PHOSPHATASE 91 u/l (38-126); ANION GAP 10 (6-22 (CALC)); BILIRUBIN, TOTAL 0.7 mg/dL (0.0-1.4); BUN 16 mg/dL (9-20); BUN/CREATININE RATIO 30 (12-20 (CALC)); CARBON DIOXIDE 27 mmol/l (22-30); CHLORIDE 103 mmol/l (95-108); CREATININE 0.5 mg/dL (0.7-1.3); GFR > 60 ML/MIN (>=60 (CALC)); GFR FOR AFR.AMER. > 60 ML/MIN (>=60 (CALC)); POTASSIUM 3.5 mmol/l (3.5-5.1); SGOT/AST 13 u/l (17-59); SODIUM 136 mmol/l (137-146)
[2019-03-03 05:52] LABS: ALBUMIN 2.6 g/dL (3.2-5.0); TOTAL PROTEIN 5.2 g/dL (6.3-8.2)
--- NOTE | 2019-03-03 06:45 | NUR ---
RECIEVED REPORT FROM TIFFANIE FARLEY. ASSUMED PT CARE.
--- NOTE | 2019-03-03 07:45 | NUR ---
PT RESTING IN BED, A&OX4, ABLE TO MAKE NEEDS KNOWN. PT DENIES CP, SOB, STATES PAIN 10/10 TO L FOOT. DRSG, INTACT. PT REMAINS NWB.RESPIRATIONS EVEN/UNLABORED. ASSESSMENT COMPLETED. CALL LIGHT IN REACH.
--- NOTE | 2019-03-03 08:00 | NUR ---
DIETARY ON UNIT, PT REPOSITIONED SELF. BREAKFAST TRAY SET UP.
--- NOTE | 2019-03-03 09:30 | NUR ---
DR. FRANKEL AT BEDSIDE FOR ASSESSMENT AND TO DISCUSS PLAN OF CARE. NEW ORDERS RECIEVED.
--- NOTE | 2019-03-03 11:30 | NUR ---
PT REPOSITIONED SELF, LUNCH TRAY SET UP. REMAINS AT BEDSIDE.
--- NOTE | 2019-03-03 12:15 | NUR ---
DR. ESPINOZA AT BEDSIDE FOR ASSESSMENT AND TO DISCUSS PLAN OF CARE. DRESSING CHANGE COMPLETED, DRAINS INTACT. REMAINS AT BEDSIDE. PT MEDICATED ORDERED PER REQUEST FOR 9/10 PAIN TO LLE. WILL MONITOR.
--- NOTE | 2019-03-03 13:56 | NUR ---
PT MEDICATED FOR PIAN 11/20 TO E, TRASFERRED TO W/C AND TRANSPORTED TO CT AND US FOR TEST. WILL MONITOR.
--- NOTE | 2019-03-03 14:34 | NUR ---
S: REGINO SEWELL JR is a 38 M who presents with GANGRENE. He has a history of DM. All medications in patient's chart were reviewed. O: VS: BP 152/90, P 97, RR 18,T 18 W 106kg, HT 6FT, Scr= 0.5, CrCl= >100ml/min A: Blood culture <is pending/show> which is sensitive to <>. Urine culture <is pending/show> which is sensitive to <>. P: Patient is on ZOSYN 3.375GM Q6H AND VANCOMYCIN. Vancomycin ordered for pharmacy to dose. Start Vancomycin 1250 IV Q8H. Vancomycin trough is drawn before the 4th dose on 03/04/19 @0930. Vancomycin goal trough is between <15-20 mcg/ml>. Pharmacy will follow and or advise on antibiotics use as needed. [facility]
--- NOTE | 2019-03-03 15:00 | NUR ---
PT BACK FROM US AND CT.
--- NOTE | 2019-03-03 15:30 | NUR ---
FAMILY ARRIVED AT BEDSIDE.
--- NOTE | 2019-03-03 16:30 | NUR ---
ARRIVED BACK TO BEDSIDE.
--- NOTE | 2019-03-03 18:16 | NUR ---
PT RESTING IN BED. REMAINS AT BEDSIDE. PT SITTING ON THE SIDE OF BED AFTER EATING MEAL. PT STILL STATING PAIN 7/10 IN LLE, PAIN MEDS RELEIVE FOR A FEW MINUTES TAKING THE EDGE OFF BUT NOT TAKING IT DOWN. PT ALSO STATED HE DID A DNA TEST AND IT SHOWED HE WAS IMMUNE TO PAIN MEDS, SOMETIMES THEY WORK AND SOMETIMES THEY DON'T. PT REQUESTED TRAZODONE AND AMBIEN MEDS FOR SLEEP HE HAS AT HOME. NOTIFIED MARLYS DAVIDSON. NEW ORDERS RECIEVED. CALL LIGHT IN REACH. WILL MONITOR.
--- NOTE | 2019-03-03 19:04 | NUR ---
REPORT RECEIVED FROM TIFFANIE CLARKE. PT RESTING IN BED SUPINE WITH EYES CLOSED AND NO SIGNS OF DISTRESS. RESPIRATIONS EVEN AND UNLABORED ON ROOM AIR. DRESSING CDI TO LEFT FOOT AND ELEVATED ON PILLOW; SCD TO RLE. SAFETY MEASURES IN PLACE. CALL LIGHT WITHIN REACH.
--- NOTE | 2019-03-03 20:06 | NUR ---
DILAUDID GIVEN FOR 8/10 LEFT FOOT PAIN; DRESSING CHANGED AFTER PT MEDICATED. PHOTO TAKEN AND PLACED IN CHART. SMALL AMOUNT OF BLOODY DRAINGE ON DRESSING. MULTIPLE FAMILY AT BEDSIDE. PLAN OF CARE REVIEWED. PT ENCOURAGED TO VERBALIZE CONCERNS. STATES UNDERSTANDING.
--- NOTE | 2019-03-03 22:22 | NUR ---
PT RESTING IN BED SEMI FOWLERS WITH EYES CLOSED AND COOL WASH CLOTH ON FOREHEAD. RECEIVED ALL PM MEDICATIONS INCLUDING DILAUDID, MORPHINE, TRAZODONE, AND SONATA; AFTER 30 MINUTES PT REPORTS HIS PAIN AT A 7/10. WILL CONTINUE TO MONITOR. NSR ON TELEMETRY HR IN THE 80'S. ACCU CHECK 134; LEVEMIR ADMINISTERED WITH A SNACK. NO OTHER REQUESTS OR CONCERNS AT THIS TIME.
[2019-03-04] VITALS (9 sets, daily range): BP systolic 104–154; BP diastolic 56–82
--- NOTE | 2019-03-04 00:49 | NUR ---
PT RECEIVING DILAUDID HOURLY FOR SEVERE LEFT FOOT PAIN; PT DOES GROAN OUT LOUD OCCASIONALLY AND ASKS TO RECEIVE HIS LORTAB WHEN IT IS DUE WELL. VSS. 97% SPO2 ON ROOM AIR; NO SIGNS OF RESPIRATORY DEPRESSION. REMAINS AT BEDSIDE. PT REPOSITIONING HIMSELF IN BED KEEPING LEFT LEG ELEVATED ON PILLOW; DRESSING REMAINS CDI. RIGHT IJ IS PATENT AND FLUIDS INFUSING WITHOUT DIFFICULTY. SAFETY MEASURES IN PLACE. CALL LIGHT WITHIN REACH.
--- NOTE | 2019-03-04 01:32 | NUR ---
PT NOW ALSO C/O LOWER BACK PAIN. SITTING UP EATING ICE CREAM AT THIS TIME.
--- NOTE | 2019-03-04 02:12 | NUR ---
VANCO INFUSING NOW. SLIDING GLASS DOOR CLOSED TO REDUCE NOISE LEVEL FOR PT.
--- NOTE | 2019-03-04 04:30 | NUR ---
CENTRAL LINE DRESSING CHANGED AND LABS DRAWN; FLUSHED PER PROTOCOL. PT REPORTS THAT DILAUDID BRINGS HIS PAIN DOWN TO "A LOW 7" AND THE LORTAB WAS INEFFECTIVE. WILL CONTINUE TO MEDICATE ORDERED. PT HAS NO REQUESTS OR CONCERNS AT THIS TIME. CALL LIGHT WITHIN REACH.
[2019-03-04 05:35] LABS: HEMOGLOBIN 9.4 g/dl (14.0-18.0); MEAN CELL VOLUME 96.7 fL CALC (80.0-100.0); MEAN CORPUSCULAR HGB 31.3 pG CALC (26.0-32.0); MEAN CORPUSCULAR HGB CONC 32.4 g/L CALC (32.0-36.0); RED CELL DISTRI WIDTH 14.8 % (11.5-15.5)
[2019-03-04 05:56] LABS: ANION GAP 9 (6-22 (CALC)); BUN 15 mg/dL (9-20); BUN/CREATININE RATIO 26 (12-20 (CALC)); CARBON DIOXIDE 27 mmol/l (22-30); CHLORIDE 107 mmol/l (95-108); CREATININE 0.6 mg/dL (0.7-1.3); GFR > 60 ML/MIN (>=60 (CALC)); GFR FOR AFR.AMER. > 60 ML/MIN (>=60 (CALC)); SODIUM 141 mmol/l (137-146)
[2019-03-04 06:01] LABS: POTASSIUM 2.4 mmol/l (3.5-5.1)
--- NOTE | 2019-03-04 08:00 | NUR ---
PT IS AWAKE, ALERT, ORIENTED X 3. PT REQUESTS PAIN MED EVERY HOUR PER RECENT FOOT SURGICAL PAIN. IS AT BEDSIDE. RIJ TLC IS PRIMARY IV SITE. LEFT FOOT COVERED WITH DRESSING, WILL ASSESS WHEN DR ESPINOZA ARRIVES.
--- NOTE | 2019-03-04 12:00 | NUR ---
PT CONTINUES TO RECEIVE MEDICATION FOR PAIN IS BECOMES AVAILABLE. DR ESPINOZA HAS BEEN IN TO SEE PT, DRESSING CHANGED. TIN DRAIN LEFT IN PLACE. WOUND IS WITHOUT OBVIOUS SIGN OF INFECTION. MINIMAL DRAINAGE, MINIMAL PINK AREA DORSAL FOOT. BOTTOM OF FOOT WITH NECROTIC AREA, WHICH IS HOPED WILL HEAL FROM INSIDE. PT AMBULATED TO WITHOUT ASSIST.
--- NOTE | 2019-03-04 16:00 | NUR ---
PT WITH MED CHANGE AFTER SEEN BY DR ESPINOZA, CONTINUES TO ASK IT IS AVAILABLE. NUMEROUS VISITORS AT BEDSIDE, PT IN NO ACUTE DISTRESS.
--- NOTE | 2019-03-04 20:10 | NUR ---
awake. c/o op pain. medicated as ordered. environmental monitoring specialist shows sinus rhythm hr 70. rij tlc in place. ns infusing @ 150cchr. po fluids taken well. voids per urinal. foot dsg changed. fall precautions cont. @ bedside.
--- NOTE | 2019-03-04 20:15 | NUR ---
lortab 10mg given per request for op pain.
--- NOTE | 2019-03-04 21:10 | NUR ---
sonata 5mg po & dilaudid 2mg ivp given per request for sleep & pain. accucheck 65. snack given.
--- NOTE | 2019-03-04 22:10 | NUR ---
accucheck 130. @ bedside.
--- NOTE | 2019-03-05 00:01 | NUR ---
eyes closed. no distress. playground monitor shows sinus rhythm hr 68.
--- NOTE | 2019-03-05 01:40 | NUR ---
dilaudid 2mg ivp given per request for op pain.
--- NOTE | 2019-03-05 02:00 | NUR ---
eyes closed. no apparent pain.
--- NOTE | 2019-03-05 04:00 | NUR ---
eyes closed. no apparent distress. diagnostic cardiac sonographer shows sinus rhythm pvcs hr 76.
--- NOTE | 2019-03-05 06:15 | NUR ---
dilaudid 2mg iv per request for pain.
[2019-03-05 07:26] LABS: HEMATOCRIT 30.8 % (39.0-50.0); HEMOGLOBIN 9.9 g/dl (14.0-18.0); IMMATURE GRANULOCYTES 0.5 % (0.0-5.0); MEAN CELL VOLUME 96.3 fL CALC (80.0-100.0); MEAN CORPUSCULAR HGB 30.9 pG CALC (26.0-32.0); MEAN CORPUSCULAR HGB CONC 32.1 g/L CALC (32.0-36.0); NEUT# 2.71 thou/uL (1.82-7.42); RED BLOOD COUNT 3.2 mill/uL (4.70-6.10); RED CELL DISTRI WIDTH 14.7 % (11.5-15.5)
[2019-03-05 07:40] VITALS: BP 150/83
--- NOTE | 2019-03-05 07:40 | NUR ---
PT RESTING INBED AWAKE. PT IS ALERT AND ORIENTED X3. SHIFT ASSESSMENT COMPLETED AT THIS TIME. IV PATENT X1. CALL LIGHT IN REACH. SPOUSE AT BEDSIDE. WILL CONTINUE TO MONITOR
[2019-03-05 07:48] LABS: ALBUMIN 2.5 g/dL (3.2-5.0); ALKALINE PHOSPHATASE 94 u/l (38-126); BUN 7 mg/dL (9-20); BUN/CREATININE RATIO 13 (12-20 (CALC)); CARBON DIOXIDE 25 mmol/l (22-30); CHLORIDE 108 mmol/l (95-108); CREATININE 0.6 mg/dL (0.7-1.3); GFR > 60 ML/MIN (>=60 (CALC)); GFR FOR AFR.AMER. > 60 ML/MIN (>=60 (CALC)); SODIUM 140 mmol/l (137-146)
[2019-03-05 07:50] LABS: ANION GAP 10 (6-22 (CALC)); BILIRUBIN, TOTAL 0.4 mg/dL (0.0-1.4); POTASSIUM 2.9 mmol/l (3.5-5.1); SGOT/AST 41 u/l (17-59)
--- NOTE | 2019-03-05 07:50 | NUR ---
PT SET UP FOR AM MEAL
--- NOTE | 2019-03-05 09:57 | NUR ---
INFECTIOUS DISEASE CONSULT PLACED VIA TABLET.
[2019-03-05 10:00] VITALS: BP 162/90
--- NOTE | 2019-03-05 10:26 | NUR ---
DRESSING CHANGE TO LEFT FOOT COMPLETED AT THIS TIME. OLD DRESSING REMOVED. NEW XEROFORM PLACED COVERED WITH 4X4 AND KERLIX AND SECURED WITH ISA BANDAGE X2. PT TOLERATED WELL.
[2019-03-05 11:00] VITALS: BP 168/84
--- NOTE | 2019-03-05 11:11 | NUR ---
Vancomycin consult Weight: 115.7 Kilograms Vancomycin single level analysis: Current dose being given: 1250 mg Current dosing interval: 8 hrs Current infusion time (hrs): 2 Single level Trough Data: Trough level obtained: 14 mcg/ml Timing of trough - # of hrs before next dose: 0.5 Hrs New rate constant (jermaine): 0.099 hr-1 Half-life: 7.00 Hours Vd from levels: 80.99 Liters (0.7 L/kg) CLvanco= 8.018 L/hr Vancomycin 1500 mg q 8 hrs. Infuse over 2 hrs Expected Cpeak: 30 mcg/mL Expected Ctrough: 16 mcg/mL next trough on 03/06/19 at 1800
--- NOTE | 2019-03-05 11:50 | NUR ---
PT SET UP FOR NOON MEAL
[2019-03-05 13:00] VITALS: BP 158/89
--- NOTE | 2019-03-05 13:15 | NUR ---
DR SALDANA AND Lillie FARMER APRN AT BEDSIDE AT THIS TIME
--- NOTE | 2019-03-05 14:29 | NUR ---
CRUTCHES PROVIDED PER DR ESPINOZA PT IS TO BE NON WEIGHT BEARING
--- NOTE | 2019-03-05 15:00 | NUR ---
PT RESTING IN BED. RESP ARE EVEN AND UNLABORED. NO DISTRESS NOTED. CALL LIGHT IN REACH. WILL CONTINUE TO MONITOR.
--- NOTE | 2019-03-05 16:51 | NUR ---
PT RESTING IN BED WATCHING TV RESP ARE EVEN AND UNLABORED NO DISTRESS NOTED CALL LIGHT IN REACH WILL CONTINUE TO MONITOR
[2019-03-05 17:00] VITALS: BP 157/86
--- NOTE | 2019-03-05 17:45 | NUR ---
PT WITH COMPLAINTS OF DIARRHEA. PROVIDER NOTIFIED. NEW ORDERS RECEIVED.
[2019-03-05 18:29] LABS: ANION GAP 10 (6-22 (CALC)); BUN 6 mg/dL (9-20); BUN/CREATININE RATIO 10 (12-20 (CALC)); CARBON DIOXIDE 30 mmol/l (22-30); CHLORIDE 103 mmol/l (95-108); CREATININE 0.6 mg/dL (0.7-1.3); GFR > 60 ML/MIN (>=60 (CALC)); GFR FOR AFR.AMER. > 60 ML/MIN (>=60 (CALC)); POTASSIUM 2.8 mmol/l (3.5-5.1); SODIUM 140 mmol/l (137-146)
--- NOTE | 2019-03-05 18:32 | NUR ---
CALL PLACED TO DR SALDANA TO NOTIFY OF LAB RESULTS. AWAITING CALL BACK MESSAGED LEFT
[2019-03-05 19:07] LABS: ALBUMIN 2.8 g/dL (3.2-5.0); ALKALINE PHOSPHATASE 118 u/l (38-126); BILIRUBIN, TOTAL 0.4 mg/dL (0.0-1.4); SGOT/AST 37 u/l (17-59); TOTAL PROTEIN 5.4 g/dL (6.3-8.2)
--- NOTE | 2019-03-05 19:30 | NUR ---
awake. no acute distress. security monitor shows sinus rhythm hr 76. rij tlc in place ns infusing @ 10cchr. po fluids taken well. voids per urinal. up to br. stool spec collected & sent to lab. fall precautions cont. @ bedside.
--- NOTE | 2019-03-05 20:15 | NUR ---
marco aaudud 2mg ivp given for c/o op pain.
[2019-03-05 20:21] LABS: C. DIFFICILE TOXIN A&B NEGATIVE (NEGATIVE)
--- NOTE | 2019-03-05 21:00 | NUR ---
sonata 5mg po per request for sleep.
--- NOTE | 2019-03-05 22:40 | NUR ---
dilaudid 2mg iv per request for pain.
[2019-03-05 23:20] VITALS: BP 143/79
[2019-03-06] VITALS (10 sets, daily range): BP systolic 131–169; BP diastolic 61–96
--- NOTE | 2019-03-06 00:01 | NUR ---
eyes closed. no disdtress. technologist development shows sinus rhythm pvcs hr 73.
--- NOTE | 2019-03-06 01:00 | NUR ---
dilaudid 2mg iv given per request for pain.
--- NOTE | 2019-03-06 02:00 | NUR ---
eyes closed. no apparent distress.
--- NOTE | 2019-03-06 03:50 | NUR ---
dilaudud 2mg iv given per request for pain.
--- NOTE | 2019-03-06 04:30 | NUR ---
no further c/o voiced.
--- NOTE | 2019-03-06 05:15 | NUR ---
blood drawn & sent to lab.
[2019-03-06 05:38] LABS: HEMATOCRIT 29.9 % (39.0-50.0); MEAN CELL VOLUME 94.6 fL CALC (80.0-100.0); MEAN CORPUSCULAR HGB 31.6 pG CALC (26.0-32.0); MEAN CORPUSCULAR HGB CONC 33.4 g/L CALC (32.0-36.0); RED BLOOD COUNT 3.16 mill/uL (4.70-6.10); RED CELL DISTRI WIDTH 14.4 % (11.5-15.5)
[2019-03-06 05:53] LABS: ANION GAP 10 (6-22 (CALC)); BUN 4 mg/dL (9-20); BUN/CREATININE RATIO 7 (12-20 (CALC)); CARBON DIOXIDE 30 mmol/l (22-30); CHLORIDE 102 mmol/l (95-108); CREATININE 0.5 mg/dL (0.7-1.3); GFR > 60 ML/MIN (>=60 (CALC)); GFR FOR AFR.AMER. > 60 ML/MIN (>=60 (CALC)); SODIUM 139 mmol/l (137-146)
[2019-03-06 05:56] LABS: MAGNESIUM 1.4 mg/dL (1.6-2.3)
--- NOTE | 2019-03-06 07:06 | NUR ---
PT RESTING IN BED C/O PAIN 12/21 TO L FOOT, PT MEDICATED FOR PAIN AT THIS TIME. CALL LIGHT IN REACH,CONTINUE TO MONITOR, S/O AT BEDSIDE.
--- NOTE | 2019-03-06 07:50 | NUR ---
PT RESTING IN BED, STATES PAIN IS NOW 7/10. PT HAS A TRIPLE LUMEN CATH TO R SUBCLAVIAN, IVF KVO, FLUSHED 2 OTHER LUMENS. DRESSING TO L FOOT CDI, DISCUSSED POC, PT VERBALIZED UNDERSTANDING. ASSESSMENT COMPLETED, CALL LIGHT IN REACH,CONTINUE TO MONITOR.
--- NOTE | 2019-03-06 10:03 | NUR ---
PT RESTING WITH EYES CLOSED, NO SIGNS OF DISTRESS NOTED, RESP EVEN AND UNLABORED. S/O AT BEDSIDE. CALL LIGHT IN REACH,CONTINUE TO MONITOR.
--- NOTE | 2019-03-06 11:25 | NUR ---
PT C/O PAIN 12/21, MEDICATED WITH DILAUDID. S/O AT BEDSIDE. CALL LIGHT IN REACH,CONTINUE TO MONITOR.
--- NOTE | 2019-03-06 12:00 | NUR ---
ARRIVED TO BEDSIDE FOR DRESSING CHANGE. PT TOLERATED WELL. CALL LIGHT IN REACH,CONTINUE TO MONITOR.
--- NOTE | 2019-03-06 13:11 | NUR ---
PT ASSISTED BACK TO BED FROM BATHROOM, PT AMBULATES WITH CRUTCHES. PT MEDICATED WITH IMMODIUM, AND DILAUDID. CALL LIGHT IN REACH,CONTINUE TO MONITOR.
--- NOTE | 2019-03-06 15:16 | NUR ---
PT RESTING IN BED, AT BEDSIDE DISCUSSING POC, PT C/O PAIN 11/20, PT MEDICATED FOR PAIN, CALL LIGHT IN REACH,CONTINUE TO MONITOR.
--- NOTE | 2019-03-06 18:09 | NUR ---
VANCO TROUGH OBTAINED FROM TRIPLE LUMEM CATH, PT TOLERATED WELL. CALL LIGHT IN REACH,CONTINUE TO MONITOR.
--- NOTE | 2019-03-06 19:30 | NUR ---
awake. c/o op pain. dilaudid 2mg iv given. security monitor shows sinus rhythm hr 84. rij tlc in place & saline locked. po fluids taken well. voids per urinal. dsg lt foot cdi. remains up on pillow. fall precautions cont. @ bedside.
--- NOTE | 2019-03-06 21:40 | NUR ---
c/o op pain. dilaudid 2mg ivp given.
--- NOTE | 2019-03-06 22:30 | NUR ---
no further c/o pain.
--- NOTE | 2019-03-06 23:52 | NUR ---
c/o op pain. dilaudid 2mg iv given.
[2019-03-07 01:20] VITALS: BP 141/86
--- NOTE | 2019-03-07 01:30 | NUR ---
no further c/o pain.
--- NOTE | 2019-03-07 02:50 | NUR ---
c/o op pain. dilaudid 2mg iv given.
[2019-03-07 03:20] VITALS: BP 141/81
--- NOTE | 2019-03-07 03:30 | NUR ---
weyes closed. no distress. remains @ bedside.
[2019-03-07 05:59] LABS: ALBUMIN 2.7 g/dL (3.2-5.0); ALKALINE PHOSPHATASE 105 u/l (38-126); ANION GAP 9 (6-22 (CALC)); BILIRUBIN, TOTAL 0.4 mg/dL (0.0-1.4); BUN 4 mg/dL (9-20); BUN/CREATININE RATIO 7 (12-20 (CALC)); CARBON DIOXIDE 33 mmol/l (22-30); CHLORIDE 101 mmol/l (95-108); CREATININE 0.6 mg/dL (0.7-1.3); GFR > 60 ML/MIN (>=60 (CALC)); GFR FOR AFR.AMER. > 60 ML/MIN (>=60 (CALC)); POTASSIUM 3.1 mmol/l (3.5-5.1); SGOT/AST 31 u/l (17-59); SODIUM 140 mmol/l (137-146); TOTAL PROTEIN 5.3 g/dL (6.3-8.2)
[2019-03-07 08:00] VITALS: BP 142/83
--- NOTE | 2019-03-07 08:00 | NUR ---
PT AWAKE, ALERT, ORIENTED X 3. LEFT FOOT DRESSING IN PLACE, ISA TO KNEE. PT MEDICATED FOR PAIN AT 0730 WHEN IT CAME DUE. AT BEDSIDE IN CHAIR. RIJ TLC HEPLOCKED. PT UP TO BR NEEDED.
--- NOTE | 2019-03-07 12:00 | NUR ---
DR ESPINOZA HAS BEEN IN TO SEE PT, SATISFIED WITH HEALING SEEN IN FOOT. WOUND WAS COVERED AGAIN, XEROFORM AGAINST WOUND. MINIMAL DRAINAGE NOTED. PAIN CONTINUES TO BE AN ISSUE, PT RECEIVES MED WHEN IT BECOMES AVAILABLE.
--- NOTE | 2019-03-07 13:30 | NUR ---
PT RECEIVED FROM ICU BED 5. REPORT RECEIVED FROM TIFFANIE MILLS. PT TRANSFERED VIA WC, STAND/PIVOT TO BED. REPORTS SEVERE LEFT FOOT PAIN. DILAUDID IV ADMINISTERED. PAIN MEDICATIONS AND SCHEDULES REVIEWED. PT STATES UNDERSTANDING. PT'S PRESENT. PT. ORIENTED TO ROOM AND EQUIPMENT. PLAN OF CARE DISCUSSED. CALL LIGHT REVIEWED AND IN REACH. PT STATES UNDERSTANDING.
[2019-03-07 13:44] VITALS: BP 169/87
[2019-03-07 15:22] VITALS: BP 155/83
--- NOTE | 2019-03-07 17:30 | NUR ---
DR. FINLEY IN TO SEE PT. PLAN OF CARE UPDATED.
[2019-03-07 19:22] VITALS: BP 140/84
--- NOTE | 2019-03-07 19:40 | NUR ---
SPOKE WITH CARDINAL PHARMACIST Kyara, INFORMED THAT LAST TROUGH DONE @ 03/06 1800, AND PATIENT IS DUE ON THE 4TH DOSE OF IV VANCO, AND STATED, PATIENT IS NOT DUE YET DUE FOR TGROUGH AT THIS TIME.
--- NOTE | 2019-03-08 01:48 | NUR ---
PATIENT STATED BS MAYBE LOW, CLAMMY SKIN, BS HARRISON 58, ALERT GIVEN ORANGEW JUICE AT THIS TIME, AND SNACK WILL RECHECK BS.
--- NOTE | 2019-03-08 03:48 | NUR ---
PATIENT CURRENTLY RESTING IN BED, REPEAT BS 151MG/DL, EYES CLOSED WITH EVEN UNLABORED BREATHING IN ROOM CALL LIGHT AT REACH.
[2019-03-08 03:55] VITALS: BP 142/74
[2019-03-08 05:50] LABS: HEMATOCRIT 32.8 % (39.0-50.0); HEMOGLOBIN 10.7 g/dl (14.0-18.0); MEAN CELL VOLUME 95.9 fL CALC (80.0-100.0); MEAN CORPUSCULAR HGB 31.3 pG CALC (26.0-32.0); MEAN CORPUSCULAR HGB CONC 32.6 g/L CALC (32.0-36.0); NEUT# 4.8 thou/uL (1.82-7.42); RED BLOOD COUNT 3.42 mill/uL (4.70-6.10); RED CELL DISTRI WIDTH 14.4 % (11.5-15.5)
[2019-03-08 06:02] LABS: ANION GAP 11 (6-22 (CALC)); BUN 4 mg/dL (9-20); BUN/CREATININE RATIO 6 (12-20 (CALC)); CARBON DIOXIDE 32 mmol/l (22-30); CHLORIDE 101 mmol/l (95-108); CREATININE 0.6 mg/dL (0.7-1.3); GFR > 60 ML/MIN (>=60 (CALC)); GFR FOR AFR.AMER. > 60 ML/MIN (>=60 (CALC)); MAGNESIUM 1.9 mg/dL (1.6-2.3); POTASSIUM 3.7 mmol/l (3.5-5.1); SODIUM 141 mmol/l (137-146)
[2019-03-08 08:00] VITALS: BP 155/82
--- NOTE | 2019-03-08 08:00 | NUR ---
PT SEEN AWAKE, ALERT, ORIENTED X 3. LEFT FOOT SOURCE OF CONSTANT PAIN POSTSURGICALLY. DRESSING CDI. PT MEDICATED WHEN THEY ARE AVAILABLE. AT BEDSIDE.
--- NOTE | 2019-03-08 12:00 | NUR ---
PT CONTINUES BEFORE, NO CHANGE IN STATUS.
--- NOTE | 2019-03-08 14:57 | NUR ---
Spoke with attending nurse prior to seeing patient, recieved instructions to maintain NWB to LLE. Pt. found resting in bed with LLE in elevation, pt. reports 9/10 L foot pain. Reviewed NWB to LLE prior to getting out of bed. Supine to sit to standing with walker performed with light CGA. Pt. ambulated using walker with step to gait pattern x 30 feet with CGA. Emphasized to pt. NWB LLE of which pt. maintained. Pt. returned to resting in bed with SBA, call light within reach and pt. without questions/concerns. AMPAC score unchanged.
[2019-03-08 15:05] VITALS: BP 159/84
--- NOTE | 2019-03-08 16:00 | NUR ---
PT SEEN BY DR ESPINOZA THIS AFTERNOON, PLEASED WITH HEALING PROGRESS. WOUND REDRESSED, PT AMBULATED IN HALLWAY WITH CRUTCHES, SEEN TO HAVE BLEEDING BETWEEN TWO RETENTION SUTURES, DRESSING CHANGED AGAIN.
--- NOTE | 2019-03-08 18:00 | NUR ---
PT SEEN BY DR FINLEY THIS AFTERNOON, CONFIRMED PLAN TO DISCHARGE HOME TOMORROW. PT HOPING TO BE DISCHARGED TODAY, BUT AGREEABLE.
--- NOTE | 2019-03-08 20:16 | NUR ---
ASSESSMENT COMPLETED. DRESSING TO LLE CDI AND LLE ELVATED ONTO PILLOW. AT BEDSIDE. TRIPLE RIJ INTACT AND ALL PORTS FLUSHED WITH NS. PT. REPORTS PAIN TO LEFT FOOT 9/10 AND MEDICATED WITH ORDERED ROXICODONE,WILL REASSESS. DENIES FURTHER NEEDS. HILTON LIGHT IS IN REACH. WILL CONTINUE TO MONITOR.
[2019-03-08 21:12] VITALS: BP 146/78
--- NOTE | 2019-03-08 21:28 | NUR ---
PT. RESTING IN BED WITH NO DISTRESS NOTED. STILL REPORTS PAIN TO LEFT FOOT 9/10 AND SLEEPLESSNESS AND MEDICATED WITH ORDERED MS CONTIN AND SONATA ALONG WITH OTHER SCHED MEDS; WILL REASSESS. SNACK PROVIDED. AT BEDSIDE, BOTH DECLINE NEEDS. ENCOURAGED TO CALL FOR ANY NEEDS. CALL LIGHT IS IN REACH.
--- NOTE | 2019-03-08 23:40 | NUR ---
RESTING IN BED ON RIGHT SIDE WITH EYES CLOSED; RESP. EVEN AND UNLABORED AND SNORING. NO DISTRESS NOTED; CALL LIGHT IS IN REACH. WILL CONTINUE TO MONITOR.
--- NOTE | 2019-03-09 01:50 | NUR ---
PT. RESTING IN BED WITH EYES CLOSED; S/O AT BEDSIDE AWAKE AND DENIES NEEDS. ENCOURAGED TO CALL FOR ANY NEEDS. CALL LIGHT IS IN REACH. WILL CONTINUE TO MONITOR.
--- NOTE | 2019-03-09 04:04 | NUR ---
PT. MEDICATED FOR LEFT FOOT PAIN 12/21 WITH ORDERED PRN LORTAB,WILL REASSESS. INFORMED PT. OF THIS CONSTRUCTION EQUIPMENT OPERATOR GOING TO DO ORDERED DRESSING CHANGE AND PER PT. HE REFUSES TO HAVE DRESSING CHANGED AT THIS TIME AND REPORTS HE WILL AWAIT DR. ESPINOZA TO COME TODAY TO ROUND THIS AM. PER PT. HE REPORTS THAT MD TOLD HIM HE WOULD GET A PAIN SHOT NOT PILL PRIOR TO DRESSING CHANGE. PT. IS INSTRUCTED TO CALL THIS CONSTRUCTION EQUIPMENT OPERATOR IF HE CHANGES HIS MIND TO ALLOW STAFF TO DO DRESSING CHANGE TO FOOT AND VERBALIZES UNDERSTANDING. CALL LIGHT IS IN REACH. WILL CONTINUE TO MONITOR.
[2019-03-09 04:30] VITALS: BP 139/80
[2019-03-09 05:19] LABS: HEMATOCRIT 33.5 % (39.0-50.0); HEMOGLOBIN 10.9 g/dl (14.0-18.0); MEAN CELL VOLUME 96.3 fL CALC (80.0-100.0); MEAN CORPUSCULAR HGB 31.3 pG CALC (26.0-32.0); MEAN CORPUSCULAR HGB CONC 32.5 g/L CALC (32.0-36.0); NEUT# 2.53 thou/uL (1.82-7.42); RED BLOOD COUNT 3.48 mill/uL (4.70-6.10); RED CELL DISTRI WIDTH 14.6 % (11.5-15.5)
[2019-03-09 05:37] LABS: IMMATURE GRANULOCYTES 7.8 % (0.0-5.0)
[2019-03-09 05:47] LABS: ANION GAP 12 (6-22 (CALC)); BUN 5 mg/dL (9-20); BUN/CREATININE RATIO 9 (12-20 (CALC)); CARBON DIOXIDE 30 mmol/l (22-30); CHLORIDE 103 mmol/l (95-108); CREATININE 0.6 mg/dL (0.7-1.3); GFR > 60 ML/MIN (>=60 (CALC)); GFR FOR AFR.AMER. > 60 ML/MIN (>=60 (CALC)); MAGNESIUM 1.9 mg/dL (1.6-2.3); POTASSIUM 3.4 mmol/l (3.5-5.1); SODIUM 141 mmol/l (137-146)
[2019-03-09 08:00] VITALS: BP 148/85
--- NOTE | 2019-03-09 08:00 | NUR ---
PT HAS BEEN DISCHARGED TO HOME. DR ESPINOZA COMPLETED DISCHARGE PAPERS AND PRESCRIPTIONS, PT VERBALIZED UNDERSTANDING OF DC INSTRUCTIONS AND WAS TAKEN TO VEHICLE BY WHEELCHAIR. PT LEAVES [facility] IN STABLE CONDITION.
--- NOTE | 2019-03-09 08:00 | NUR ---
PT AWAKE, ALERT, ORIENTED X 3. LUNGS CLEAR, RA. PT WITH LEFT FOOT BANDAGED, STATES THAT HE DOES NOT NEED IT REWRAPPED TODAY SINCE HE IS BEING DISCHARGED TO HOME AND HOME HEALTH WILL CHANGE IT TODAY. PT AWAITS DR ESPIONZA TO ARRIVE TO COMPLETE DISCHARGE PAPERS.
--- NOTE | 2019-03-09 08:51 | NUR ---
Pt resting in bed stating his pain level was 9/10. He agreed to ambulate. Bed mobility was indep. Sit to and from stand indep. Pt NWB status reviewed and mantained. He ambulated 1 x60 with supervision using RW. Pt returned to bed. Importance of elevation of LLE and NWB stressed for healing and pain relief. Pt present and pt wanting to go home today.
[2019-03-09] MEDS ORDERED: AMOX/K CLAV875 M1 PO (10:29)
[2019-03-09] MEDS ORDERED: PERCOCET 10/31 COMBO PO (10:32)
== END 2019-03-09 11:05 | disposition home health service (06) | DRG 239 ==
LOC: ED 12:27 → ED-I 14:48 → ED 15:16 → MS2 15:17 → ICU 15:17 → MS2 03-07 13:30
PROVIDERS: Family Medicine; Internal Medicine; Nurse Practitioner Family; Surgery; ADMIT Internal Medicine; ATTEND Internal Medicine
PROC: 0Y6N0Z9 Detachment at Left Foot, Partial 1st Ray, Open Approach (ICD-10-PCS; principal; 2019-03-02)
PROC: 0Y6N0ZB Detachment at Left Foot, Partial 2nd Ray, Open Approach (ICD-10-PCS; 2019-03-02)
PROC: 0Y6N0ZC Detachment at Left Foot, Partial 3rd Ray, Open Approach (ICD-10-PCS; 2019-03-02)
PROC: 0Y6N0ZD Detachment at Left Foot, Partial 4th Ray, Open Approach (ICD-10-PCS; 2019-03-02)
PROC: 0Y6N0ZF Detachment at Left Foot, Partial 5th Ray, Open Approach (ICD-10-PCS; 2019-03-02)
PROC: 02HV33Z Insertion of Infusion Device into Superior Vena Cava, Percutaneous Approach (ICD-10-PCS; 2019-03-02)
DX: E11.52 Type 2 diabetes mellitus with diabetic peripheral angiopathy with gangrene (principal); A48.0 Gas gangrene; L03.116 Cellulitis of left lower limb; L97.528 Non-pressure chronic ulcer of other part of left foot with other specified severity; M86.8X7 Other osteomyelitis, ankle and foot; E11.621 Type 2 diabetes mellitus with foot ulcer; E11.69 Type 2 diabetes mellitus with other specified complication; E11.65 Type 2 diabetes mellitus with hyperglycemia; I10 Essential (primary) hypertension; F17.210 Nicotine dependence, cigarettes, uncomplicated; E87.6 Hypokalemia; R19.7 Diarrhea, unspecified; E83.42 Hypomagnesemia; F32.9 Major depressive disorder, single episode, unspecified; Z88.6 Allergy status to analgesic agent; Z89.422 Acquired absence of other left toe(s); Z79.4 Long term (current) use of insulin
CPT/HCPCS: J0131; J1100; J1650; J3370; J3475; Q3014; Q9967

== ENCOUNTER 2019-05-02 | Inpatient (IN) | payer MEDICARE ==
[~2019-05-02] MED LIST changes: +AMOX/K CLAV875 M1 PO; +PERCOCET 10/31 COMBO PO
[2019-05-02 11:05] VITALS: BP 120/81
[2019-05-02] MEDS ORDERED: TRAZODONE50 MG PO (11:41)
[2019-05-02] MEDS ORDERED: XANAX0.5 MG PO (11:42)
--- NOTE | 2019-05-02 11:50 | NUR ---
DR. MILLAN VERBALLY STATED THAT HE WANTED PRISCILA STILES TO SPEAK WITH DR. ZIMMER PERSONALLY ABOUT THE CONSULTATION ORDERED FOR OSTEOMYELITIS. ALEXANDRE VERBALLY CONFIRMED THE REQUEST AT 11:00 AM.
--- NOTE | 2019-05-02 12:00 | NUR ---
PT ARRIVES TO FLOOR VIA WHEELCHAIR, DIRECT ADMIT. PT HAS LEFT FOOT DRESSED PER EARLIER APPOINTMENT WITH PHYSICIAN. PT IS AMBULATORY. LUNGS CLEAR, RA. PT MEDICATED FOR PAIN REQUESTED.
[2019-05-02 12:43] LABS: HEMATOCRIT 31.1 % (39.0-50.0); HEMOGLOBIN 10.4 g/dl (14.0-18.0); IMMATURE GRANULOCYTES 0.7 % (0.0-5.0); MEAN CORPUSCULAR HGB 29.5 pG CALC (26.0-32.0); MEAN CORPUSCULAR HGB CONC 33.4 g/L CALC (32.0-36.0); NEUT# 4.85 thou/uL (1.82-7.42); RED BLOOD COUNT 3.53 mill/uL (4.70-6.10); RED CELL DISTRI WIDTH 13.8 % (11.5-15.5)
[2019-05-02 12:44] LABS: MEAN CELL VOLUME 88.1 fL CALC (80.0-100.0)
[2019-05-02 12:56] LABS: ALKALINE PHOSPHATASE 144 u/l (38-126); ANION GAP 16 (6-22 (CALC)); BUN 12 mg/dL (9-20); BUN/CREATININE RATIO 20 (12-20 (CALC)); CARBON DIOXIDE 29 mmol/l (22-30); CHLORIDE 91 mmol/l (95-108); CREATININE 0.6 mg/dL (0.7-1.3); GFR > 60 ML/MIN (>=60 (CALC)); GFR FOR AFR.AMER. > 60 ML/MIN (>=60 (CALC)); MAGNESIUM 1.7 mg/dL (1.6-2.3); POTASSIUM 3.4 mmol/l (3.5-5.1); SGOT/AST 15 u/l (17-59); SODIUM 134 mmol/l (137-146)
[2019-05-02 13:04] LABS: ALBUMIN 3.6 g/dL (3.2-5.0); BILIRUBIN, TOTAL 0.6 mg/dL (0.0-1.4); TOTAL PROTEIN 7.2 g/dL (6.3-8.2)
--- NOTE | 2019-05-02 13:53 | NUR ---
I ENTERED THE CONSULTATION FOR INFECTIOUS DISEASE AND AM NOW WAITING FOR A RESPONSE FROM DR. CRAIG. I ENTERED THE CONSULT AT 1354 AND NOTIFIED THE NURSE TIFFANIE MILLS ABOUT THE CONSULT.
[2019-05-02 15:25] VITALS: BP 137/82
[2019-05-02] MEDS ORDERED: TRAZODONE HYDR150 MG PO (17:09)
--- NOTE | 2019-05-02 18:10 | NUR ---
DR CRAIG OF INFECTIOUS DISEASE HAS SEEN PT JUST NOW VIA TELEMEDICINE. IVF RUNNING PER LACTIC ACID ELEVATION PROTOCOL, 2.8. PT MEDICATED REGULARLY FOR PAIN, MAINTAINS A 7 OR GREATER PAIN NUMBER. AT BEDSIDE.
[2019-05-02 19:05] VITALS: BP 145/81
--- NOTE | 2019-05-02 20:00 | NUR ---
REPORT RECEIVED FROM TIFFANIE MILLS. PT C/O PAIN OF 12/21. PAIN MEDICATION ADMINISTERED PER ORDER. WILL CONTINUE TO MONITOR
[2019-05-03] VITALS (10 sets, daily range): BP systolic 140–162; BP diastolic 79–95
--- NOTE | 2019-05-03 | NUR ---
PT PAIN LEVEL IS CONSISTENTLY 7 AND ABOVE. PAIN MEDICATION DMINISTERED Q 2 HOURD. DROP SHIPMENT CLERK WILL CONTINUE TO MONITOR
--- NOTE | 2019-05-03 04:00 | NUR ---
PAIN MEDICATION ADMINISTERED AT A QUATER TO 4. PT TILL RATING PAIN VERY SEVER. MACHINE MARKER WILL ADMINISTER DILUADID IF PAIN UNRESOLVED WITH PERCOCET
[2019-05-03 05:00] LABS: HEMATOCRIT 27.6 % (39.0-50.0); MEAN CELL VOLUME 89.9 fL CALC (80.0-100.0); MEAN CORPUSCULAR HGB 29.3 pG CALC (26.0-32.0); MEAN CORPUSCULAR HGB CONC 32.6 g/L CALC (32.0-36.0); RED BLOOD COUNT 3.07 mill/uL (4.70-6.10); RED CELL DISTRI WIDTH 13.8 % (11.5-15.5)
[2019-05-03 05:18] LABS: ANION GAP 13 (6-22 (CALC)); BUN 8 mg/dL (9-20); BUN/CREATININE RATIO 16 (12-20 (CALC)); CARBON DIOXIDE 29 mmol/l (22-30); CHLORIDE 97 mmol/l (95-108); CREATININE 0.5 mg/dL (0.7-1.3); GFR > 60 ML/MIN (>=60 (CALC)); GFR FOR AFR.AMER. > 60 ML/MIN (>=60 (CALC)); MAGNESIUM 1.7 mg/dL (1.6-2.3); POTASSIUM 3.3 mmol/l (3.5-5.1); SODIUM 136 mmol/l (137-146)
--- NOTE | 2019-05-03 06:15 | NUR ---
DILAUDID ADMINISTERED AT 5AM WITH GOOD EFFECT. PT IS SLEEPING. EYES CLOSED, RESPIRATION EVEN AND UNLABORED. DISTRICT COMMERCIAL SUPERINTENDENT WILL CONTINUE TO MONITOR.
--- NOTE | 2019-05-03 10:03 | NUR ---
PT SEEN AT REST IN THE BED WITH AT BEDSIDE. PT HAS BEEN MEDICATED ROUTINELY FOR PAIN RELIEF, STATES PAIN IS TO BACK, LEG, GENERALIZED. ANTICIPATE OPERATING ROOM THIS MORNING PER DR ESPINOZA. LUNGS CLEAR, RA.
--- NOTE | 2019-05-03 13:44 | NUR ---
PT HAS BEEN TAKEN TO SURGERY FOR LEFT FOOT REVISION. PT MEDICATED PRIOR TO DEPARTURE.
--- NOTE | 2019-05-03 13:57 | NUR ---
S: REGINO SEWELL JR is a 38 M who presents with Cellulitis of the left foot. He has a history of DMT2, Chronic Pain Syndrome, Hypertension, Foot infection, Periphreal Vascular Disease, Migranes, Osteoarthrtis.All medications in patient's chart were reviewed. O: VS: BP 137/87 mmHg, P 92 bpm, RR 20 Breaths per minute,T99.2 F W 92.533 kg, HT 182.88 cm, Scr= 0.5 mg/dL,CrCl= 214.10 ml/min A: Blood culture is pending. P: Patient is on Cefazolin 2 GM IV Q8H . Vancomycin ordered for pharmacy to dose. Start Vancomycin 1GM IV Q8H. Vancomycin trough is drawn 30 minutes before the 4th dose on 05/04/19 at 0530. Vancomycin goal trough is between 10-15 mcg/ml. Pharmacy will follow and or advise on antibiotics use as needed.
--- NOTE | 2019-05-03 20:00 | NUR ---
REPORT RECEIVED FROM TIFFANIE MILLS. PT IN ROOM. PT IS ABLE TO MAKE NEEDS KNOWN.
--- NOTE | 2019-05-04 | NUR ---
DILAUDID ADMINISTERED AT 0024AM FOR C/O 9/10 PAIN. PT REFUSED OXYCODONE-ACETAMINOPHEN. STATES THAT HE PREFERS IV PAIN MEDS. IV ON RAC OCCLUDED. NEW IV 22 GAUGE PLACED ON RIGHT HAND. PT TOLERATED PROCEDURE WELL. WEB ARCHITECT WILL CONTINUE TO MONITOR.
--- NOTE | 2019-05-04 02:00 | NUR ---
PT REQUESTED DILAUDID. PT NOTIFIED TOO SOON FOR ADMINISTRATION. UPHOLSTERER ASSEMBLY LINE OFFERED OXYCODONE -ACETAMINOPHEN. PT REFUSED STATES THAT HE PREFERS DILAUDID. UPHOLSTERER ASSEMBLY LINE WILL ADMINISTER DILAUDID WHEN DUE
[2019-05-04 03:22] VITALS: BP 154/86
--- NOTE | 2019-05-04 04:00 | NUR ---
PT RESTING QUIETLY IN ROOM. NO S/S OF DISTRESS. HOWEVER PT CONTINUES TO RATE PAIN 7 AND HIGHER. PT REFUSES OXYCODONE-ACETAMINOPHEN. PT DENIES ANY OTHER CONCERN. DRESSING ON LEFT FOOT DRY AND INTACT. RUBBER GOODS REPAIRER WILL CONTINUE TO MONITOR
[2019-05-04 06:15] LABS: HEMATOCRIT 27.6 % (39.0-50.0); HEMOGLOBIN 9.2 g/dl (14.0-18.0); IMMATURE GRANULOCYTES 0.5 % (0.0-5.0); MEAN CELL VOLUME 89.3 fL CALC (80.0-100.0); MEAN CORPUSCULAR HGB 29.8 pG CALC (26.0-32.0); MEAN CORPUSCULAR HGB CONC 33.3 g/L CALC (32.0-36.0); NEUT# 5.49 thou/uL (1.82-7.42); RED BLOOD COUNT 3.09 mill/uL (4.70-6.10); RED CELL DISTRI WIDTH 13.7 % (11.5-15.5)
[2019-05-04 06:23] LABS: ANION GAP 13 (6-22 (CALC)); BUN 5 mg/dL (9-20); BUN/CREATININE RATIO 11 (12-20 (CALC)); CARBON DIOXIDE 30 mmol/l (22-30); CHLORIDE 95 mmol/l (95-108); CREATININE 0.5 mg/dL (0.7-1.3); GFR > 60 ML/MIN (>=60 (CALC)); GFR FOR AFR.AMER. > 60 ML/MIN (>=60 (CALC)); MAGNESIUM 1.6 mg/dL (1.6-2.3); POTASSIUM 3.4 mmol/l (3.5-5.1); SODIUM 136 mmol/l (137-146)
[2019-05-04 08:00] VITALS: BP 142/94
--- NOTE | 2019-05-04 08:00 | NUR ---
REPORT RECEIVED FROM TIFFANIE WAY. PT RESTING IN BED WITH LEFT FOOT BANDAGE INTACT AND DRY. RESP EVEN AND UNLABORED. ABD SOFT UNTENDER. VOIDING WITHOUT PROBLEMS. NO FLATUS YET. PT STATES L FOOT PAIN IS A 7/10 AND BETTER. SIDERAILS UP X 2, CALL LIGHT WITHIN REACH. SUPPORT GIVEN.
--- NOTE | 2019-05-04 10:29 | NUR ---
NEW DRESSING PLACED ON LEFT FOOT. SUTURES ARE WELL APPROXIMATED. MINIMAL DRAINAGE NOTED. PLACED 4X4, ABD PAD AND KERLIX. WRAPPED WITH ISA WRAP AND PLACD. A NETTIGN TO KEEP IN PLACE. PT TOLERATED WELL. USES CLEANED TECHNIQUE. ASSISTED PT TO BSC WITH 1 PERSON PIVOTED WELL.
[2019-05-04 15:51] VITALS: BP 134/88
[2019-05-04 18:40] VITALS: BP 127/82
--- NOTE | 2019-05-04 19:45 | NUR ---
PT RESTING IN BED WITH SO AT BEDSIDE. ASSESMENT COMPLETE. PLAN OF CARE REVIEWED W/ PT AND SO. PTS PRIORITY IS PAIN MANAGMENT, PAIN MANAGMENT PLAN DISCUSSED. PT AND SO VERBALIZE UNDERSTANDING AND DENY QUESTIONS, CALL GUTHRIE WITHIN REACH AND AGREES TO CALL PRN.
[2019-05-04 23:28] VITALS: BP 119/75
--- NOTE | 2019-05-05 00:15 | NUR ---
PT APPEARS TO BE SLEEPING COMFORTABLY, RESP REG/UNLABORED, NO APPARENT DISTRESS. CALL GUTHRIE REMAINS WITHIN REACH.
--- NOTE | 2019-05-05 04:15 | NUR ---
PT APPEARS TO BE SLEEPING COMFORTABLY, NO APPARENT DISTRESS, RESP REG/UNLABORED. CALL GUTHRIE REMAINS WITHIN REACH.
[2019-05-05 04:19] VITALS: BP 144/80
[2019-05-05 05:28] LABS: HEMATOCRIT 27.1 % (39.0-50.0); HEMOGLOBIN 8.7 g/dl (14.0-18.0); IMMATURE GRANULOCYTES 0.7 % (0.0-5.0); MEAN CELL VOLUME 91.2 fL CALC (80.0-100.0); MEAN CORPUSCULAR HGB 29.3 pG CALC (26.0-32.0); MEAN CORPUSCULAR HGB CONC 32.1 g/L CALC (32.0-36.0); NEUT# 2.85 thou/uL (1.82-7.42); RED BLOOD COUNT 2.97 mill/uL (4.70-6.10); RED CELL DISTRI WIDTH 13.9 % (11.5-15.5)
[2019-05-05 05:45] LABS: ANION GAP 12 (6-22 (CALC)); BUN 5 mg/dL (9-20); BUN/CREATININE RATIO 11 (12-20 (CALC)); CARBON DIOXIDE 32 mmol/l (22-30); CHLORIDE 98 mmol/l (95-108); CREATININE 0.5 mg/dL (0.7-1.3); GFR > 60 ML/MIN (>=60 (CALC)); GFR FOR AFR.AMER. > 60 ML/MIN (>=60 (CALC)); MAGNESIUM 1.9 mg/dL (1.6-2.3); POTASSIUM 3.4 mmol/l (3.5-5.1); SODIUM 139 mmol/l (137-146)
--- NOTE | 2019-05-05 08:03 | NUR ---
Critical results of blood culture growing gram positive cocci in [address] Chakraborty. New order received.
[2019-05-05 08:10] VITALS: BP 136/91
--- NOTE | 2019-05-05 08:10 | NUR ---
ASSESSMENT IS COMPLETEDD: IV SIE IS FREE FROM REDNESS OR EDEMA. FAMILY IN THE ROON BREATH SOUNDS ARE CLEAR BILATERALLY. NO DISTRESS NOTED. HR IS REG.PULSES ARE STRONG. DRESSING ON LEFT FOOT IS CDI. FLUSHES WELL.
--- NOTE | 2019-05-05 09:35 | NUR ---
DR CRAIG ON CONFERENCE CALL WITH PT AND SPOUSE.DRESSING REMOVED ON LEFT FOOT. MODERATE BLOODY DRAINAGE NOTED. SUTURES ARE WELL APPROXIMATED. REDRESSED WITH 4X4 AND ABD PAD WRAPPED WITH KERLIX, AND ISA WRAPPT TOLERATED WELL
--- NOTE | 2019-05-05 10:15 | NUR ---
DR FRANKEL IN TO VISIT WITH PT
--- NOTE | 2019-05-05 12:40 | NUR ---
PT IS RELAXING IN BED WITH NO DISTRESS NOTED IV SITE IS FREE FROM REDNESS OR EDEMA. CONTINUE TO OBSERVE AND MONITOR.
--- NOTE | 2019-05-05 13:26 | NUR ---
SPOKE WITH RE: PICC LINE IS ON HOLD UNTIL RESULTS FROM . WILL INFORM PT.
[2019-05-05 15:10] VITALS: BP 128/78
--- NOTE | 2019-05-05 16:35 | NUR ---
PT IS RELAXING IN BED FAMILY IN THE ROOM. IV SITE IS FREE FROM REDNESS OR EDEMA.
--- NOTE | 2019-05-05 20:30 | NUR ---
PT RESTING IN BED, APPEARS COMFORTABLE AND IN NO APPARENT DISTRESS. REPORTS PAIN LEVEL 9/10, SEE PAIN ASSESMENT FOR INTERVENTION AND F/U. SPOUSE AT BEDSIDE. PT DECLINES DRESSING CHANGE TO L FOOT AT THIS TIME, DRESSING CHANGE DEFFERED. DRESSING IS C/D/I. ASSESMENT COMPLETED AND PLAN OF CARE REVIEWED. PT AND S/O VERBALIZE UNDERSTANDING AND DENY QUESTIONS. CALL GUTHRIE WITHIN REACH, AGREES TO CALL PRN.
--- NOTE | 2019-05-06 03:45 | NUR ---
SLEEPING, APPEARS COMFORTABLE AND IN NO DISTRESS, RESP REG/UNLABORED. CALL GUTHRIE REMAINS WITHIN REACH.
[2019-05-06 04:20] VITALS: BP 142/82
[2019-05-06 08:35] VITALS: BP 152/90
--- NOTE | 2019-05-06 08:40 | NUR ---
REPORT RECEIVED FROM TIFFANIE MICHAEL. PT SITTING UPRIGHT IN BED. LEFT FOOT DRSG CDI, FOOT ELEVATED ON PILLOW. AT BEDSIDE. PT. REPORTS CONSTANT PAIN AT A LEVEL OF 9/10, NO AGGRAVATING FACTORS, ONLY RELIEVED SOMEWHAT BY DILAUDID, THROBBING IN NATURE. PERCOCET PO OFFERED TO PT. TO ALTERNATE WITH DILAUDID. PT REFUSING AT THIS TIME. STATES "IT DONT DO A THING FOR MY FOOT." PT. EDUCATED ON PAIN MEDICATIONS ORDERED AND PAIN MANAGEMENT TECHNIQUES. PT STATES UNDERSTANDING. PT REQUESTING LEFT FOOT DRESSING TO BE CHANGED AFTER DR. ESPINOZA ROUNDS. CALL LIGHT REVIEWED AND IN REACH. FALL PRECAUTIONS REINFORCED. PT STATES UNDERSTANDING.
--- NOTE | 2019-05-06 11:30 | NUR ---
DR. ESPINOZA IN TO SEE PT AT THIS TIME. LEFT FOOT DRESSING REMOVED PER DR. ESPINOZA. INCISION FREE OF REDNESS/DRAINAGE/SIGNS OF INFECTION. DRY DRESSING APPLIED, TIME,DATED, AND INITIALED.
--- NOTE | 2019-05-06 12:30 | NUR ---
DR. FRANKEL IN TO SEE PT AT THIS TIME. PLAN OF CARE UPDATED. NEED FOR PICC LINE FOR FDC IV ABX DISCUSSED AND AGREED UPON.
[2019-05-06 15:14] VITALS: BP 126/83
--- NOTE | 2019-05-06 18:28 | NUR ---
PT REQUESTING DILAUDID IV. PT REMINDED MED IS NOT AVAILABLE MORE THAN EVERY 2 HOURS. PT STATES UNDERSTANDING.
--- NOTE | 2019-05-06 19:00 | NUR ---
REPORT RECEIVED FROM TIFFANIE PATEL. PT RESTING IN BED. RESPIRATIONS EVEN AND UNLABORED ON RA. NO S/S OF DISTRESS AT THIS TIME. WILL CONTINUE TO MONITOR.
[2019-05-06 20:00] VITALS: BP 151/98
--- NOTE | 2019-05-06 20:11 | NUR ---
PT RESTING IN BED. ALERT AND ORIENTED. RESPIRATIONS EVEN AND UNLABORED ON RA, LUNG SOUND CLEAR. PEDAL PULSES WEAK. PT REPORTS PAIN OF A 9/10, PT EDUCATED ON PAIN MED SCHEDULE. SAFETY PRECAUTIONS IN PLACE. WILL CONTINUE TO MONITOR.
--- NOTE | 2019-05-07 00:08 | NUR ---
PT RESTING IN BED. ALERT AND ORIENTED. PT REPORTSPAIN OF A 12/21. PT MEDICATED PER EMAR ORDERS. DRESSING TO L FOOT CHANGED, PT TOLERATED WELL. SAFETY PRECAUTIONS IN PLACE.
[2019-05-07 04:00] VITALS: BP 115/80
--- NOTE | 2019-05-07 04:10 | NUR ---
PT RESTING IN BED, AT BEDSIDE. NO S/S OF DISTRESS AT THIS TIME. WILL CONTINUE TO MONITOR.
[2019-05-07 05:43] LABS: HEMATOCRIT 27.2 % (39.0-50.0); HEMOGLOBIN 8.6 g/dl (14.0-18.0); MEAN CELL VOLUME 92.2 fL CALC (80.0-100.0); MEAN CORPUSCULAR HGB 29.2 pG CALC (26.0-32.0); MEAN CORPUSCULAR HGB CONC 31.6 g/L CALC (32.0-36.0); RED BLOOD COUNT 2.95 mill/uL (4.70-6.10); RED CELL DISTRI WIDTH 14.2 % (11.5-15.5)
--- NOTE | 2019-05-07 05:47 | NUR ---
PT AMA STATING " I GOT MY PRESCRIPTION LAST NIGHT FROM THE DOCTOR, HE SAID I COULD GO, I WON'T HAVE A RIDE HOME IF I WAIT" PT EDUCATED ON LEAVING AGAINST MEDICAL ADVISE. PT SIGNED RELEASE. IV SITE REMOVED. PT LEAVING WITH TAKING ALL BELONGINGS.
[2019-05-07 06:08] LABS: ANION GAP 11 (6-22 (CALC)); BUN 6 mg/dL (9-20); BUN/CREATININE RATIO 11 (12-20 (CALC)); CARBON DIOXIDE 36 mmol/l (22-30); CHLORIDE 96 mmol/l (95-108); CREATININE 0.5 mg/dL (0.7-1.3); GFR > 60 ML/MIN (>=60 (CALC)); GFR FOR AFR.AMER. > 60 ML/MIN (>=60 (CALC)); MAGNESIUM 1.6 mg/dL (1.6-2.3); POTASSIUM 3.1 mmol/l (3.5-5.1); SODIUM 139 mmol/l (137-146)
--- NOTE | 2019-05-07 06:38 | NUR ---
NOTIFIED OF PT LEAVING AMA
== END 2019-05-07 05:43 | disposition left against medical advice (07) | DRG 617 ==
PROVIDERS: Nurse Practitioner Family; ADMIT Surgery
PROC: 0Y6N0Z9 Detachment at Left Foot, Partial 1st Ray, Open Approach (ICD-10-PCS; principal; 2019-05-03)
PROC: 0Y6N0ZB Detachment at Left Foot, Partial 2nd Ray, Open Approach (ICD-10-PCS; 2019-05-03)
PROC: 0Y6N0ZC Detachment at Left Foot, Partial 3rd Ray, Open Approach (ICD-10-PCS; 2019-05-03)
PROC: 0Y6N0ZD Detachment at Left Foot, Partial 4th Ray, Open Approach (ICD-10-PCS; 2019-05-03)
PROC: 0Y6N0ZF Detachment at Left Foot, Partial 5th Ray, Open Approach (ICD-10-PCS; 2019-05-03)
DX: E11.69 Type 2 diabetes mellitus with other specified complication (principal); M86.172 Other acute osteomyelitis, left ankle and foot; E11.621 Type 2 diabetes mellitus with foot ulcer; L97.529 Non-pressure chronic ulcer of other part of left foot with unspecified severity; E11.51 Type 2 diabetes mellitus with diabetic peripheral angiopathy without gangrene; E11.42 Type 2 diabetes mellitus with diabetic polyneuropathy; E11.65 Type 2 diabetes mellitus with hyperglycemia; I10 Essential (primary) hypertension; E87.6 Hypokalemia; G89.4 Chronic pain syndrome; D63.8 Anemia in other chronic diseases classified elsewhere; G47.09 Other insomnia; R55 Syncope and collapse; F41.9 Anxiety disorder, unspecified; B95.61 Methicillin susceptible Staphylococcus aureus infection as the cause of diseases classified elsewhere; Z79.4 Long term (current) use of insulin; Z98.62 Peripheral vascular angioplasty status; Z89.432 Acquired absence of left foot
CPT/HCPCS: J0692; J3370; Q3014; Q9967; S0164

== ENCOUNTER 2020-02-04 10:01 | Inpatient (IN) | payer MEDICARE, MEDICAID ==
[~2020-02-04] VITALS: Ht 182.9 cm; Wt 93.2 kg
[~2020-02-04 10:01] MED LIST changes: +TRAZODONE HYDR150 MG PO; +TRAZODONE50 MG PO; +XANAX0.5 MG PO
--- NOTE | 2020-02-04 10:19 | NUR ---
PATIENT TO ROOM VIA WHEELCHAIR FOR BEDSIDE TRIAGE.
--- NOTE | 2020-02-04 10:50 | NUR ---
MEDICATED FOR THROBBING 8/10 LT FOOT PAIN ORDERED. FOOT WRAPPED FOR DRAINAGE. PT TO CT SCAN.
[2020-02-04 10:54] LABS: HEMATOCRIT 40.2 % (39.0-50.0); HEMOGLOBIN 13.7 g/dl (14.0-18.0); IMMATURE GRANULOCYTES 0.9 % (0.0-5.0); MEAN CELL VOLUME 93.7 fL CALC (80.0-100.0); MEAN CORPUSCULAR HGB 31.9 pG CALC (26.0-32.0); MEAN CORPUSCULAR HGB CONC 34.1 g/dL CAL (32.0-36.0); NEUT# 9.96 thou/uL (1.82-7.42); RED BLOOD COUNT 4.29 mill/uL (4.70-6.10); RED CELL DISTRI WIDTH 12.8 % (11.5-15.5)
[2020-02-04 11:06] LABS: ALBUMIN 3.9 g/dL (3.2-5.0); ALKALINE PHOSPHATASE 153 u/l (38-126); BILIRUBIN, TOTAL 0.7 mg/dL (0.0-1.4); BUN 13 mg/dL (9-20); BUN/CREATININE RATIO 18 (12-20 (CALC)); CARBON DIOXIDE 36 mmol/l (22-30); CHLORIDE 87 mmol/l (95-108); CREATININE 0.7 mg/dL (0.7-1.3); GFR > 60 ML/MIN (>=60 (CALC)); GFR FOR AFR.AMER. > 60 ML/MIN (>=60 (CALC)); POTASSIUM 3.2 mmol/l (3.5-5.1); SGOT/AST 19 u/l (17-59)
[2020-02-04 11:14] LABS: ANION GAP 12 (6-22 (CALC)); SODIUM 132 mmol/l (137-146)
[2020-02-04] MEDS ORDERED: NOVOLOG MIX SC (11:15)
[2020-02-04] MEDS ORDERED: POT CHLORIDE20 ME3 PO (11:16)
--- NOTE | 2020-02-04 11:22 | NUR ---
INITIATED IVF BOLUS AND ABT PT JUST RETURNED FROM [facility]. PT ROCKING LT LEG BACK AND FORTH STATES PAIN 01/20. EDP UPDATED AND NEW ORDERS RECEIVED
--- NOTE | 2020-02-04 11:35 | NUR ---
PT MEDICATED FOR PAIN 01/20 LT FOOT. IV FLUID BOLU SAND IV ABT INFUSING WITHOUT DIFFICULTY. VSS. DRESSING INTACT TO LT FOOT.
--- NOTE | 2020-02-04 12:25 | NUR ---
PT MEDICATED WITH INSULIN IV ORDERED FOR BS 377. PT UPDATED ON POC AND IV ABT AND FLUIDS INFUSING
--- NOTE | 2020-02-04 13:03 | NUR ---
PT RESTING COMFORTABLY IN NO DISTRESS WITH IV ABT INFUSING WITHOUT DIFFICULTY. UPDATED ON WAIT TIME FOR ADMIT. PAIN TO LT FOOT 06/20
--- NOTE | 2020-02-04 13:48 | NUR ---
LT FOOT WARM TO TOUCH WITH CAPILLARY REFILL TO FOREFOOT. HAS BROWN/RED DRAINAGE TO TOP OF FOREFOOT. COVERED AND PT UPDATED ON WAIT TIME FOR SURGERY. PT DENIES COMPLAINTS AT THIS TIME
--- NOTE | 2020-02-04 14:00 | NUR ---
REPORT TO TIFFANIE LOBATO FROM THE OR
--- NOTE | 2020-02-04 14:18 | NUR ---
PT MOVED SELF TO STRETCHER IN CARE OF OR NURSE AND ANESTHESIA. PT ALERT AND CONVERSIVE. AT BEDSIDE. CARE OF PT RELINQUISHED TO OR STAFF AND PT TRASNPORTED TO OR VIA STRETCHER
[2020-02-04 16:10] VITALS: BP 117/71
--- NOTE | 2020-02-04 16:10 | NUR ---
PT. ARRIVED FROM SURGERY TO ROOM WITH DRESSING INTACT TO LEFT FOOT WITH SEROSANGUINOUS DRAINAGE WEEPING THROUGH DRESSING. PER MD ORDER DSG TO BE CHANGED TONIGHT DAMP TO DRY. MEDICATED FOR PAIN. A&O X 3. AT BEDSIDE. HAS O2 @ 2 L WITH SAT OF 100%. ALL TOES ON LEFT FOOT WERE AMPUTATED IN APRIL & WOUND ESSENTIALLY NON-HEALING SINCE PER . WILL MONITOR.
--- NOTE | 2020-02-04 19:30 | NUR ---
PATIENT RESTING IN BED AT THIS TIME WATCHING TV. PATIENT AWAKE ALERT AND ORIENTEDX3. LEFT FOOT ELEVATED ON PILLOWS. DRESSING TO LEFT FOOT WITH SEROSANGUINOUS DRAINAGE NOTED. PATIENT C/O POST-OP LEFT FOOT PAIN 12/21-HAS ALREADY BEEN MEDICATED WITH LORTAB. WILL MEDICATE WITH MS CONTIN ORDERED. IV SITE LAC INTACT WITH LR PATENT AND INFUSING AT 100CC/HR. SITE IS HEALTHY AT THIS TIME. SAFETY PRECAUTIONS REINFORCED. CALL LIGHT IN REACH. WILL CONT TO MONITOR.
[2020-02-04 19:46] VITALS: BP 116/75
--- NOTE | 2020-02-04 21:00 | NUR ---
PATIENT RESTING IN BED-LLE REMAINS ELEVATED. PAIN IS 8/10 AT THIS TIME PER PATIENT. [id number] WITH LEVEMIR 60UNITS AND NOVALOG 1UNIT SQ ORDERED. HS SNACK PROVIDED. PATIENT VOIDED 100CC OF KELSEY URINE IN URINAL. VANCO INFUSING ORDERED VIA LAC SITE. CALL LIGHT IN REACH. WILL CONT TO MONITOR.
--- NOTE | 2020-02-04 23:34 | NUR ---
PATIENT RESTING IN BED WITH LEFT FOOT ELEVATED ON PILLOWS. PATIENT WITH PAIN LEVEL 9/10 AFTER WOUND CARE WAS DONE. MEDICATED WITH DILAUDID 1MG IVP FOR PAIN ORDERED. ZOSYN HUNG ORDERED AND INFUSING VIA LAC SITE. SITE REMAINS HEALTHY. CALL LIGHT IN REACH. WILL CONT TO MONITOR.
[2020-02-04 23:38] VITALS: BP 142/89
--- NOTE | 2020-02-05 01:54 | NUR ---
PATIENT APPEARS SLEEPING AT THIS TIME WITH EYES CLOSED. RESPS ARE EVEN AND UNLABORED. LLE IS ELEVATED ON PILLOWS-DRESSING TO LLE IS INTACT. IVF PATENT AND INFUSING VIA LAC SITE AT 100CC/HR. SITE REMAINS HEALTHY. CALL LIGHT IN REACH. WILL CONT TO ASIAIOR.
[2020-02-05 04:00] VITALS: BP 133/77
--- NOTE | 2020-02-05 04:30 | NUR ---
PATIENT RESTING IN BED-[facility] HUNG ORDERED AND INFUSING VIA LAFT AC SITE. PATIENT C/O SEVERE LEFT FOOT PAIN-9/10 ON PAIN SCALE. MEDICATED WITH DILAUDID 1MG IVP FOR PAIN. LEFT FOOT REMAINS ELEVATED ON PILLOWS. SAFETY PRECAUTIONS REINFORCED. CALL LIGHT IN REACH. WILL CONT TO MONITOR.
[2020-02-05 05:47] LABS: MEAN CORPUSCULAR HGB 31.8 pG CALC (26.0-32.0); MEAN CORPUSCULAR HGB CONC 33.4 g/dL CAL (32.0-36.0); RED BLOOD COUNT 3.37 mill/uL (4.70-6.10); RED CELL DISTRI WIDTH 12.9 % (11.5-15.5)
[2020-02-05 06:00] LABS: HEMOGLOBIN 10.7 g/dl (14.0-18.0)
[2020-02-05 06:07] LABS: ALBUMIN 2.7 g/dL (3.2-5.0); ALKALINE PHOSPHATASE 111 u/l (38-126); ANION GAP 9 (6-22 (CALC)); BILIRUBIN, TOTAL 0.4 mg/dL (0.0-1.4); BUN 12 mg/dL (9-20); BUN/CREATININE RATIO 22 (12-20 (CALC)); CARBON DIOXIDE 33 mmol/l (22-30); CHLORIDE 96 mmol/l (95-108); CREATININE 0.6 mg/dL (0.7-1.3); GFR > 60 ML/MIN (>=60 (CALC)); GFR FOR AFR.AMER. > 60 ML/MIN (>=60 (CALC)); POTASSIUM 2.9 mmol/l (3.5-5.1); SGOT/AST 23 u/l (17-59); SODIUM 135 mmol/l (137-146); TOTAL PROTEIN 5.4 g/dL (6.3-8.2)
--- NOTE | 2020-02-05 06:29 | NUR ---
PATIENT RESTING IN BED-STILL WITH PAIN 8/10 ON PAIN SCALE TO LLE. MEDICATED WITH LORTAB 10/325MG PO. LLE REMAINS ELEVATED ON PILLOWS. DRESSING INTACT. BS ON MORNING [id number] PROVIDED WITH JUICE AND CRACKERS. CALL LIGHT IN REACH. WILL CONT TO MONITOR.
--- NOTE | 2020-02-05 07:00 | NUR ---
PATIENT LAYING IN BED AT THIS TIME. ASSESSMENT DONE SEE INTERVENTIONS. PATIENT I&D POST OP DAY 1 DRESSING TO LEFT FOOT INTACT AT THIS TIME. RESPIRATIONS EASY AND UNLABORED. PATIENT PAIN REASSESSED AT THIS TIME AND STATES IT IS A 8 OUT OR 0-10. PATIENT REPOSITIONED AT THIS TIME. PATIENT PREVIOUSLY MEDICATED. ALL SAFETY MEASURES ARE IN PLACED. CALL LIGHT IN REACH CONTINUED TO MONITOR.
--- NOTE | 2020-02-05 08:55 | NUR ---
PATIENT IV FLUIDS CHANGED AT THIS TIME TO .9NS AT 100MLS PER HOUR. TUBING CHANGED AND DATED. PATIENT STATING PAIN LEVEL IS A 9 OUT OF A SCALE OF 0-10. PATIENT MEDICATED AT THIS TIME. HOOD FRANCOIS IN ROOM TO EXPLAIN CHANGES IN PAIN MEDICATION AND TO REINFORCE CONTINUING TO TAKE ALL SCHEDULED MEDICATIONS. PATIENT STARTED ON IV POTASSIUM. PATIENT IN ROOM ALL SAFETY MEASURES ARE IN PLACE. CALL LIGHT WITHIN REACH.
[2020-02-05] MEDS ORDERED: ALPRAZOLAM0.5 M2 PO (08:57)
--- NOTE | 2020-02-05 09:45 | NUR ---
PATIENT STATING THAT IV SITE WAS HURTING AT THIS TIME. IV SITE ASSESSED AND FLUSH AND IV POTASSIUM TURN DOWN TO 45ML PER/HR FROM 50. PATIENT EDUCATED ON IV POTASSIUM AND ADVISED TO INFOR NURSE IF PAIN IN IV SITE WORSENS.
--- NOTE | 2020-02-05 10:04 | NUR ---
S: REGINO SEWELL JR is a 39 M who presents with abscess/osteomyelitis of left foot . He has a history of T2 diabetes, chronic pain syndrome, hypertension, foot infection, peripheral vascular disease, migraines, and osteoarthritis. All medications in patient's chart were reviewed. O: VS: BP 133/77 mmHg, P 99 bpm, RR 18 breaths/min, T 96.8 F W 93.2 kg, HT 72 in, Scr= 0.6 mg/dL, CrCl= 213.6 ml/min A: Blood culture is pending. P: Patient is on Zosyn 3.375 g IV Q6H. Vancomycin ordered for pharmacy to dose. Start Vancomycin 1000 mg IV Q8H on 02/03 @ 1200. Vancomycin trough is drawn before the 4th dose on 02/05/20 at 1200. Vancomycin goal trough is between 15-20 mcg/ml. Pharmacy will follow and or advise on antibiotics use as needed.
--- NOTE | 2020-02-05 11:28 | NUR ---
UPON ENTERING THE ROOM PATIENT UP IN BATHROOM AT THIS TIME ASSISTED BY . PATIENT ADVISED THAT HE WAS GOING TO RECEIVE 1 UNIT OF NOVOLOG FOR A BLOOD GLUCOSE OF 190 (SEE EMAR). PATIENT ALSO RE-EDUCATED TO CALL FOR HELP NEEDED FOR ASSISTANCE TO BATHROOM. PATIENT IS REQUESTING A WALKER TO HELP WITH BALANCE AND ONE WAS GIVEN BY THIS LITERARY AGENT.
--- NOTE | 2020-02-05 12:40 | NUR ---
S: REGINO SEWELL JR is a 39 M who presents with diabetic foot infx . He has a history of t2dm. All medications in patient's chart were reviewed. O: VS: BP 133/77 mmhg, P 99bpm, RR 18 breaths/min, T 96.8 F W 93 kg, HT 72 in, Scr 0.6 ml/min Vanco trough = 8 mcg/ml @ 1200 A: Blood culture is pending Wound culture shows S aureus P: Patient is on Zosyn 3.35g iv q6h. Vancomycin ordered for pharmacy to dose. Increase dose to Vancomycin 1500mg IV Q8H. Vancomycin trough is drawn before the 4th dose on 02/05 @ 1330. Vancomycin goal trough is between 10-20 mcg/ml. Unsure if cellulitis or osteomyelitis, so shooting for trough closer to 15. Pharmacy will follow and or advise on antibiotics use as needed.
--- NOTE | 2020-02-05 14:35 | NUR ---
DRESSING TO LEFT FOOT CHANGED AT THIS TIME. PER DR. ESPINOZA NO PACKING NEEDED AT THIS TIME. PATIENT TO HAVE BELOW THE KNEE AMPUTATION ON 02/06/2020. PATIENT TOLERATED DRESSING CHANGE WELL, AT BEDSIDE.
[2020-02-05 15:00] VITALS: BP 124/78
--- NOTE | 2020-02-05 15:31 | NUR ---
PATIENT C/0 OF PAIN IN LEFT FOOT 9 OUT OF A PAIN SCALE OF 0-10. MEDICATED FOR PAIN AT THIS TIME SEE EMAR. REMAINS AT BEDSIDE.
--- NOTE | 2020-02-05 16:56 | NUR ---
2 UNITS OF SLIDING SCALE NOVOLOG GIVEN AT THIS TIME FOR BLOOD GLUCOSE OF 214. PATIENT ALSO MEDICATED WITH PO PAIN MEDICATION FOR PAIN IN FOOT. PATIENT STATES IT IS A 8 OUT OF A PAIN SCALE OF 0-10. AT BEDSIDE VOICES NO OTHER CONCERNS AT THIS TIME.
--- NOTE | 2020-02-05 17:40 | NUR ---
PATIENT IN BED WATCHING TV AT BEDSIDE. PATIENT SURGERY CONSENT SIGNED AT THIS TIME AND PATIENT VERBALIZES UNDERSTANDING OF SURGICAL PROCEEDURE. PATIENT STATES HIS PAIN IS STILL A 8 ON A SCALE OF 0-10 AND WAS PREVIOUSLY MEDICATED. PATIENT REPOSITIONED AT THIS TIME. PATIENT ASK THAT BE ALLOWED TO STAY OVERNIGHT DUE TO HER LIVING SO FAR AWAY. INSTRUCTIONAL DESIGNER CALLED TO COME SPEAK TO PATIENT AND AT THIS TIME.
--- NOTE | 2020-02-05 18:34 | NUR ---
PATIENT REQUESTING PAIN MEDICATION AT THIS TIME. PATIENT STATES PAIN IS A 9 OUT OF A SCALE OF 0-10. 1MG OF DILUDID GIVEN AT THIS TIME. AT BEDSIDE. ALL SAFETY MEASURES IN PLACE. WAS GIVEN PERMISSION TO STAY OVERNIGHT BUT MUST REMAIN IN THE ROOM AND WHEN STAFF ENTERS MUST WEAR MASK. FOREST LAND[employer]APE ECOLOGY PROFESSOR DID EXPLAIN THIS TO THE AND SHE VERBALIZES UNDERSTANDING OF RULES OF STAYING ALL NIGHT.
[2020-02-05 19:00] VITALS: BP 141/94
--- NOTE | 2020-02-05 19:00 | NUR ---
REPORT RECEIVED FROM Antony SALAZAR RN, CARE OF PT ASSUMED AT THIS TIME.
--- NOTE | 2020-02-05 21:25 | NUR ---
PHYSICAL ASSESMENT COMPLETE. LLE FOOT DRESSING IS C/D/I. IS AT BEDSIDE. PT'S HAS RECEIVED PERMISSION TO STAY OVERNIGHT FROM ADMINISTRATION. PLAN OF CARE REVIEWED. PT AND VERBALIZE UNDERSTANDING AND DENY QUESTIONS. SEE E-MAR FOR ADMINISTRATION OF SCHEDULED AND PRN MEDICATIONS. PT AND DENY FURTHER NEEDS AT THIS TIME, CALL GUTHRIE WITHIN REACH, AGREES TO CALL PRN.
--- NOTE | 2020-02-05 22:00 | NUR ---
PT'S BLED THROUGH LLE DRESSING AND LOOSENED DRESSING WHILE GETTING OOB TO BATHROOM. OLD DRESSING REMOVED. PACKING LEFT IN PLACE. ABD PAD APPLIED AND SECURED WITH KERLEX.
[2020-02-06] VITALS (10 sets, daily range): BP systolic 123–154; BP diastolic 80–96
--- NOTE | 2020-02-06 00:05 | NUR ---
X2 BLANKETS PROVIDED PER PTS REQUEST. PT NPO AT THIS TIME. ALL FOOD AND FLUIDS REMOVED. PT VERBALIZES UNDERSTANDING OF NPO STATUS AND AGREES.
--- NOTE | 2020-02-06 01:30 | NUR ---
PT APPEARS TO BE SLEEPING COMFORTABLY, RESTING IN BED WITH EYES CLOSED, RESPIRATIONS REGUALR AND UNLABORED, NO APPARENT DISTRESS. CALL GUTHRIE REMAINS WITHIN REACH.
[2020-02-06 04:49] LABS: HEMATOCRIT 30.7 % (39.0-50.0); HEMOGLOBIN 10.3 g/dl (14.0-18.0); MEAN CELL VOLUME 95.3 fL CALC (80.0-100.0); MEAN CORPUSCULAR HGB CONC 33.6 g/dL CAL (32.0-36.0); RED BLOOD COUNT 3.22 mill/uL (4.70-6.10); RED CELL DISTRI WIDTH 12.9 % (11.5-15.5)
[2020-02-06 05:00] LABS: ANION GAP 8 (6-22 (CALC)); BUN 6 mg/dL (9-20); BUN/CREATININE RATIO 12 (12-20 (CALC)); CARBON DIOXIDE 32 mmol/l (22-30); CHLORIDE 101 mmol/l (95-108); CREATININE 0.5 mg/dL (0.7-1.3); GFR > 60 ML/MIN (>=60 (CALC)); GFR FOR AFR.AMER. > 60 ML/MIN (>=60 (CALC)); MAGNESIUM 1.7 mg/dL (1.6-2.3); POTASSIUM 3.1 mmol/l (3.5-5.1); SODIUM 138 mmol/l (137-146)
--- NOTE | 2020-02-06 07:33 | NUR ---
RECIEVED REPORT FROM TIFFANIE LUDWIG. PT RESTING IN SEMI FOWLERS POSITION WITH EYES CLOSED AND AT BEDSIDE UPON ENTERING ROOM. INTRODUCED SELF TO PT AND DISCUSSED POC. PT IS A/O X3. ASSESSMENT AND VITALS COMPLETED AT THIS TIME. BP 135/80, HR 87, O2 96% ON ROOM AIR. RESPIRATIONS ARE EVEN AND UNLABORED WITH NO SIGNS OF DISTRESS NOTED. LUNG SOUNDS ARE CLEAR. HEART RHYTHM IS NORMAL. BOWEL SOUNDS ARE ACTIVE IN ALL QUADRANTS, LAST REPORTED BM 02/06/2020. RADIAL AND PEDAL PULSES ARE STRONG WITH NORMAL CAPILLARY REFILL. #20G IN LAC RUNNING WITH IVF PER ORDER, SITE APPEARS HEALTHY AND PATENT. DRESSING TO LEFT LEG CDI AT THIS TIME. PT COMPLAINS OF 9/10 PAIN IN LEFT LEG, WRITTER INFORMED PT THAT PAIN MEDICATION WAS YET AVAILABLE. PT VERBAILZED UNDERSTANDING. PT DENIES ANY OTHER PAINS OR DISCOMFORTS AT THIS TIME. ALL SAFETY PRECAUTIONS ARE IN NPLACE WITH CALL LIGHT IN REACH. WILL CONTINUE TO MONITOR.
--- NOTE | 2020-02-06 09:05 | NUR ---
PT TRANSPORTED TO RADIOLOGY IN STABKLE CONDITION VIA WHEELCHAIR ACCOMPAINED BY [employer]LES
--- NOTE | 2020-02-06 09:45 | NUR ---
PT ARRIVED BACK TO [facility] ROOM 262 VIA WHEELCHAIR IN STABLE CONDITION. PICC LINE PLACE IN [facility] WITH GOOD BLOOD RETURN. ARM MEASURING IN 30.5 CM. IVF STARTED PER ORDER, SITE APPEARS HEALTHY AND PATENT. #20G IN LAC REMOVED WITH CATHATER STILL INTACT. PT TOELRATED WELL. PT COMPLAINS OF 9/10 PAIN IN LEFT LEG. DILADID ADMINISTERED PER ORDER. WRITTER SUGGESTED CHANGING AT DRESSING DUE TO IT LEAKING. PT REFUSED STATING " THEY WILL JUST CHNAGE IN WHEN I GO TO GET IT CUT OFF." DRESSING RE-INFORCED. PT TOLERATED WELL. LEFT LEG ELVATED WITH PILLOWS. ALL SAFETY PRECAUTIONS ARE IN PLACE WITH CALL LIGHT IN REACH. WILL CONTINUE TO MONITOR
--- NOTE | 2020-02-06 11:02 | NUR ---
PT TRANSPORTED TO OR BY OR STAFF VIA BED IN STABLE CONDITION.
--- NOTE | 2020-02-06 13:56 | NUR ---
PT note Patient is screened for PT intervention and could benefit from PT consult if medical agrees
--- NOTE | 2020-02-06 14:54 | NUR ---
DR ESPINOZA AT BEDSIDE SPEAKING WITH PT
--- NOTE | 2020-02-06 15:46 | NUR ---
PT ARRIVED TO [facility] ROOM 262 VIA BED IN STABLE CONDITION WITH OR STAFF. PT HAD BKA BY DR ESPINOZA. BEDSIDE REPORT RECIEVED. VITALS OBTAINED. BP 135/84, HR 77, O2 99% ON 2L NC. RESPIRATIONS ARE EVEN AND UNLABORED WITH NO SIGNS OF DISTRESS NOTED. LUNG SOUNDS REAMIN CLEAR. HEART RHYTHM NORMAL. PT COMPLAINS OF 7/10 PAIN IN LEFT LEG. WRITTER INFORMED PT THAT PAIN MEDICATION WAS JUST ADMINISTERED. PT VERBAILZED UNDERSTANDING. TIFFANY PICC RUNNING WITH IVF PER ORDER, SITE APPEARS HEALTHY AND PATENT. DRESSING TO LEFT LEG REAMINS CDI AT THIS TIME. LEFT LIMB ELEVATED ON PILLOW. I.S AT BEDSIDE, PT EDUCATED ON USE. PT DENIES ANY OTHER NEEDS AT THIS TIME. ALL SAFETY PRECAUTIONS ARE IN PLACE WITH CALL LIGHT IN REACH AND AT BEDSIDE. WILL CONTINUE TO MONITOR
--- NOTE | 2020-02-06 19:00 | NUR ---
REPORT RECRIVED FROM Loyda BEST RN, CARE OF PT ASSUMED AT THIS TIME.
--- NOTE | 2020-02-06 20:00 | NUR ---
SPOKE WITH DR. FRANKEL REGARDING PT'S REPORTS OF CONTINUED PAIN 8-10 DESPITE INCREASE IN ANALGESIC FREQUENCY. ORDER TO INCREASE PRN DILAUDID TO 2MG IV Q2H PRN RECEIVED. CHANGES DISCUSSED WITH PT.
--- NOTE | 2020-02-06 21:20 | NUR ---
PHYSICAL ASSESEMENT COMPLETE. PT'S POST-OPERATIVE SURGICAL DRESSING TO L BKA IS CLEAN/ DRY/ AND INTACT. L-STUMP ELEVATED ON PILLOWS. SEE E-MAR F0R SCHEDULED AND PRN MEDICATIONS ADMINISTRATION. PLAN OF CARE DISCUSSED WITH PATIENT. PT VERBALIZES UNDERSTANDING AND DENIES QUESTIONS. DENIES ANY FURTHER NEEDS AT THIS TIME. CALL GUTHRIE WITHIN REACH, AGREES TO CALL PRN.
--- NOTE | 2020-02-07 00:47 | NUR ---
PT LAYING IN BED WITH EYES CLOSED, APPEARS TO BE SLEEPING COMFORTABLY, NO APPARENT DISTRESS, RESPIRATION REGULAR AND UNLABORED. CALL GUTHRIE REMIANS WITHIN REACH.
--- NOTE | 2020-02-07 02:45 | NUR ---
PT CALLS AND REQUEST DILAUDID, ADVISED PT ITS NOT DUE FOR ANOTHER HOUR, ASKED PT IF HE IS HAVING INCREASED PAIN, PT STATES "I GUESS I JUST GOT MIXED UP WITH THE TIME"
[2020-02-07 03:35] VITALS: BP 148/94
[2020-02-07 04:45] LABS: HEMATOCRIT 30.7 % (39.0-50.0); HEMOGLOBIN 10.2 g/dl (14.0-18.0); MEAN CELL VOLUME 95.9 fL CALC (80.0-100.0); MEAN CORPUSCULAR HGB 31.9 pG CALC (26.0-32.0); MEAN CORPUSCULAR HGB CONC 33.2 g/dL CAL (32.0-36.0); RED BLOOD COUNT 3.2 mill/uL (4.70-6.10); RED CELL DISTRI WIDTH 12.9 % (11.5-15.5)
[2020-02-07 05:04] LABS: ANION GAP 7 (6-22 (CALC)); BUN 5 mg/dL (9-20); BUN/CREATININE RATIO 10 (12-20 (CALC)); CARBON DIOXIDE 36 mmol/l (22-30); CHLORIDE 99 mmol/l (95-108); CREATININE 0.6 mg/dL (0.7-1.3); GFR > 60 ML/MIN (>=60 (CALC)); GFR FOR AFR.AMER. > 60 ML/MIN (>=60 (CALC)); MAGNESIUM 1.6 mg/dL (1.6-2.3); POTASSIUM 3.2 mmol/l (3.5-5.1); SODIUM 139 mmol/l (137-146)
[2020-02-07 07:59] VITALS: BP 158/97
--- NOTE | 2020-02-07 07:59 | NUR ---
RECEIVED REPORT FROM TIFFANIE MICHAEL. PT RESTING IN SEMI FOWLERS POSITION UPON ENTERING ROOM. INTRODUCED SELF TO PT AND DISCUSSED POC. PT IS A/O X3. ASSESSMENT AND VITALS COMPLETED. RESPIRATIONS ARE EVEN AND UNLABORED WITH NO SIGNS OF DISTRESS NOTED. LUNG SOUNDS ARE CLEAR. HEART RHYTHM IS NORMAL. BOWEL SOUNDS ARE ACTIVE IN ALL QUADRANTS, LAST REPORETD BM 02/06/2020. RADIAL AND RIGHT PEDAL PULSE IS STRONG WITH NORMAL CAPILLARY REFILL. PT HAS BKA OF LEFT LEG BY DR ESPINOZA ON 02/06/2020. LEFT LIMB IS ELVATED ON PILLOW WITH DRESSING CDI AT THIS TIME. TIFFANY PICC FLUSHED ,SITE APPEARS HEALTHY AND PATENT. PT COMPLAINS OF 9/10 PAIN OF LEFT LIMB. PT TO BE MEDICATED PER EMAR. PT DENIES ANY OTHER PAINS OR DISCOMFORTS AT THSI TIME. ALL SFAETY PRECAUTIONS ARE IN PLACE WITH CALL LIGHT IN REACH. WILL CONTINUE TO MONITOR.
--- NOTE | 2020-02-07 09:17 | NUR ---
REASSESSMENT OF PAIN RESULTING IN 10/20. RESPIRATIONS ARE EVEN AND UNLABORE DWIHT NO SIGNS OF DISTRESS NOTED.
--- NOTE | 2020-02-07 11:19 | NUR ---
PT COMPLAINS OF 8/10 PAIN IN LEFT LIMB. PT TO BE MEDICATED PER EMAR. PT EDUCATED PT OF PAIN MEDICATION. WRITTER INFORMED PT THAT DOSAGE OR FREQUENCY OF PAIN MEDICATION MAY CHANGE DUE TO PT NOT BEING ABLE TO GO HOME WITH DILADID IV. WRITTER INFORMED PT THAT PAIN MEDICATION EMAINS THE SAME AT THIS TIME. PT VERBAILZED UNDERSTANDING. ALL SFAETY PRECAUTIONS ARE IN PLACE WIHT CALL LIGHT IN REACH. WILL CONTINUE TO MONITOR
--- NOTE | 2020-02-07 11:54 | NUR ---
REASSESSMENT OF PAIN RESULTING IN 10/20. RESPIRATIONS ARE EVEN AND UNLABORED WIHT NO SIGNS OF DISTRESS NOTED. AT BEDSIDE. PT DENIES ANY NEEDS AT THIS TIME. ALL SAFETY PRECAUTIONS ARE IN PLACE WITH CALL LIGHT IN REACH. WILL CONTIUE TO MONITOR
--- NOTE | 2020-02-07 13:31 | NUR ---
PT COMPLAINS OF 9/10 PAIN OF LEFT STUMP AT THIS TIME. T TO BE MEDICATED PER EMAR. RESPIRATIONS REMAINS EVEN AND UNLABORED. ALL SAFTEY PRECAUTIONS ARE IN PLACE WIHT CALL LIGHT IN REACH. MWILL CONTINUE TO MONITOR
--- NOTE | 2020-02-07 14:44 | NUR ---
REASSESSMENT OF PAIN AT THIS TIME RESULTING IN 10/20. PT STATES THAT PAIN IS STARTING TO COME BACK. ASKED WRITTER IF PAIN MEDICATION COULD BE GIVEN BY SELF WITHOUT FLUIDS GOING DUE TO "FLUIDS DILUTING THE PAIN MEDICATION." WRITTER EXPLAIN TO THAT FLUIDS DO NOT AFFECT THE STRGTH OF PAIN MEDICATION BUT WRITTER WILL ADMINISTER PAIN MEDICATION BY SELF IF WANTED.
[2020-02-07 16:00] VITALS: BP 130/81
--- NOTE | 2020-02-07 16:19 | NUR ---
PT REQUEST PAIN MEDICATION AT THIS TIME. STATES " THE REASON WHY ITS NOT HELPIG IS BECAUSE HE DOSNT GET IT ON TIME. " WRIITER INFORMED PT AND THAT DILAUDID IS ORDERED 2MG Q2H NEEDED, NOT SCHEDULED EVERY 2 HOURS. NO RESPONSE GIVEN BACK FROM PT OR . DILAUDID ADMINISTERED TO ASSIST WITH PAIN OF 10/10. RESPIRATIONS ARE EVEN AND UNLABORED WITH NO SIGNS OF DISTRESS NOTED. ALL SFAETY PRECAUTIONS ARE IN PLACE WIHT CALL LIGHT IN REACH. WILL CONTINUE TO MONITOR
[2020-02-07 19:00] VITALS: BP 142/88
--- NOTE | 2020-02-07 19:00 | NUR ---
REPORT RECEIVED FROM Loyda BEST RN, CARE OF PTS ASSUMED AT THIS TIME.
--- NOTE | 2020-02-08 01:31 | NUR ---
PT LAYING IN BED WITH EYES CLOSED, APPEARS TO BE SLEEPING COMFORTABLY, NO APPARENT DISTRESS, RESPIRATION REGULAR AND UNLABORED. CALL GUTHRIE REMIANS WITHIN REACH.
[2020-02-08 04:00] VITALS: BP 127/84
--- NOTE | 2020-02-08 04:45 | NUR ---
AM LABS DRAWN FROM [facility] W/O DIFFICULTY.
[2020-02-08 05:41] LABS: HEMATOCRIT 30.4 % (39.0-50.0); MEAN CELL VOLUME 95.9 fL CALC (80.0-100.0); MEAN CORPUSCULAR HGB 31.5 pG CALC (26.0-32.0); MEAN CORPUSCULAR HGB CONC 32.9 g/dL CAL (32.0-36.0); RED BLOOD COUNT 3.17 mill/uL (4.70-6.10); RED CELL DISTRI WIDTH 12.9 % (11.5-15.5)
[2020-02-08 06:01] LABS: ANION GAP 9 (6-22 (CALC)); BUN 4 mg/dL (9-20); BUN/CREATININE RATIO 8 (12-20 (CALC)); CARBON DIOXIDE 35 mmol/l (22-30); CHLORIDE 97 mmol/l (95-108); CREATININE 0.5 mg/dL (0.7-1.3); GFR > 60 ML/MIN (>=60 (CALC)); GFR FOR AFR.AMER. > 60 ML/MIN (>=60 (CALC)); MAGNESIUM 1.7 mg/dL (1.6-2.3); SODIUM 137 mmol/l (137-146)
[2020-02-08 08:10] VITALS: BP 145/90
--- NOTE | 2020-02-08 08:10 | NUR ---
ASSESSMENT IS COMPLETED: IV SITE IS FREE FROM REDNESS OR EDEMA HR IS REG,PULSES ARE STRONG X3, ABD IS SOFT WITH ACTIVE BS. BREATH SOUNDS ARE CLEAR,BILATERALLY, DRESSING ON LEFT BKA IS CDI. FAMILY IN THE ROOM.
--- NOTE | 2020-02-08 08:40 | NUR ---
DR ESPINOZA IN TO VISIT WITH PT. REMOVED DRESSING ON LEFT BKA. TRACI AND SKIN IS INTACT. SOME BLISTERING NOTED. WILL REPLACE THE DRESSING AND ISA WRAP
--- NOTE | 2020-02-08 10:00 | NUR ---
AGAPITO FROM PHYSICAL THERAPY IN TO VISIT WITH PT. AND REPLACED THE DRESSING ON LEFT BKA.
--- NOTE | 2020-02-08 12:15 | NUR ---
PT IS RESTING IN BED WITH FAMILY IN THE ROOM. IV SITE IS FREE FROM REDNESS OR EDEMA. CONTINUE TO OSBERVE AND MONITOR,.
[2020-02-08 15:00] VITALS: BP 144/80
--- NOTE | 2020-02-08 16:15 | NUR ---
pt is resting in bed, no distress noted. iv site is free from redness or edema
--- NOTE | 2020-02-08 17:52 | NUR ---
pt stated" there was something on the salad (seasoning) can't finish the food" offered something else but did not want anything.
[2020-02-08 18:30] VITALS: BP 145/89
--- NOTE | 2020-02-08 19:34 | NUR ---
ASSESSMENT COMPLETED. PICC LINE TO TIFFANY INTACT AND CIRCUMFERENCE MEASURING 33CM, GOOD BLOOD RETURN; PT. C/O 12/21 PAIN TO LLE AND MEDICATED WITH ORDERED PRN DILAUDID; WILL REASSESS. RE-EDUCATED ON PRN PAIN MED MANAGEMENT AND ENCOURAGED USE OF I/S; SCD REAPPLIED TO RLE. DRESSING TO LEFT STUMP IN PLACE; UNABLE TO ASSESS SURGICAL INCISION AND ELEVATED ONTO PILLOW. CALL LIGHT IS IN REACH. WILL CONTINUE TO MONITOR. ENCOURAGED TO CALL FOR ANY NEEDS.
[2020-02-08 19:44] VITALS: BP 136/89
--- NOTE | 2020-02-08 21:48 | NUR ---
PT. C/O LLE PAIN ALONG WITH SLEEPLESSNESS AND MEDICATED WITH ORDERED PRN DILAUDID AND SONATA; WILL REASSESS.
--- NOTE | 2020-02-08 23:36 | NUR ---
RESTING IN BED WITH EYES CLOSED; NO DISTRESS NOTED; RESP. EVEN AND UNLABORED. CALL LIGHT IS IN REACH.
--- NOTE | 2020-02-09 00:09 | NUR ---
PT. C/O LLE PAIN 12/21; MEDICATED WITH ORDERED PRN DILAUDID; WILL REASSESS.
--- NOTE | 2020-02-09 00:09 | NUR ---
PT. C/O LLE PAIN AND MEDICATED WITH ORDERED PRN DILAUDID; WILL REASSESS.
[2020-02-09 03:00] VITALS: BP 147/90
--- NOTE | 2020-02-09 03:00 | NUR ---
MEDICATED WITH ORDERED PRN DILAUDID FOR LLE PAIN PER ORDER; PT. IS REMINDED TO ATTEMPT TO TRANSITION TO PO PAIN TAB LORTAB AND PT. CONTINUES TO DECLINE IT AT THIS TIME AND REQUESTS DILAUDID; AM LABS DRAWN AND VSS.
[2020-02-09 03:10] LABS: HEMATOCRIT 28.9 % (39.0-50.0); HEMOGLOBIN 9.6 g/dl (14.0-18.0); MEAN CORPUSCULAR HGB 31.9 pG CALC (26.0-32.0); MEAN CORPUSCULAR HGB CONC 33.2 g/dL CAL (32.0-36.0); RED BLOOD COUNT 3.01 mill/uL (4.70-6.10); RED CELL DISTRI WIDTH 13.2 % (11.5-15.5)
[2020-02-09 03:28] LABS: ANION GAP 10 (6-22 (CALC)); BUN 4 mg/dL (9-20); BUN/CREATININE RATIO 10 (12-20 (CALC)); CARBON DIOXIDE 31 mmol/l (22-30); CHLORIDE 99 mmol/l (95-108); CREATININE 0.4 mg/dL (0.7-1.3); GFR > 60 ML/MIN (>=60 (CALC)); GFR FOR AFR.AMER. > 60 ML/MIN (>=60 (CALC)); MAGNESIUM 1.5 mg/dL (1.6-2.3); POTASSIUM 3.2 mmol/l (3.5-5.1); SODIUM 137 mmol/l (137-146)
--- NOTE | 2020-02-09 06:16 | NUR ---
MEDICATED WITH ORDERED PRN DILAUDID FOR PAIN 11/20; WILL REASSESS. URINAL EMPTIED.
[2020-02-09 08:20] VITALS: BP 138/82
--- NOTE | 2020-02-09 08:20 | NUR ---
ASSESSMENT IS COMPLETED: IV SITE IS FREE FROM REDNESS OR EDEMA. HR IS REG, PULSES ARE STRONG X4, ABD IS SOFT WITH ACTIVE BS. BREATH SOUNDS ARE CLEAR,BILATERALLY.DRESSING ON LEFT STUMP IS CDI. WITH STOCKING IN PLACE. CONTINUE TO OBSERVE AND MONITOR.
--- NOTE | 2020-02-09 09:00 | NUR ---
PT DID ASK FOR PAIN MEDICATION. GAVE AT THIS TIME. WITH MAINTENANCE MEDS. FAMILY IN THE ROOM. IV SITE IS FREE FROM REDNESS OR EDEMA.
--- NOTE | 2020-02-09 12:10 | NUR ---
PT IS RELAXING IN BED FAMILY AT BEDSIDE. INQUIRED IF PT IS GOING HOME. INFORMED WILL LET THEM KNOW WHEN I FIND OUT,
--- NOTE | 2020-02-09 13:00 | NUR ---
IV FLUIDS TOTAL IS 3336
[2020-02-09] MEDS ORDERED: LORTAB 1010 MG PO (13:29)
[2020-02-09] MEDS ORDERED: HYDROMORPHONE HC2 MG PO (14:08)
[2020-02-09] MEDS ORDERED: GABAPENTIN300 M2 PO (14:08)
[2020-02-09] MEDS ORDERED: BACTRIM DS1 TAB PO (14:15)
[2020-02-09 15:53] VITALS: BP 132/85
--- NOTE | 2020-02-09 16:05 | NUR ---
IV SITE DISCONTINEUD CATHETER INTACT.PICC LINE TIP INPLACE PT TOLETERATED WELL.
--- NOTE | 2020-02-09 16:20 | NUR ---
PT RECEIVED DISCHARGE INSTRUCTIONS. AND PRESCRIPTIONS. IV SITE WAS DISCONTINUED CATHETER INTACT. FAMILY IN THE ROOM. LEFT STUMP IS COVERDED WITH DRY DRESSING AND ISA WRAP. PT TOLERATED WELL. CONTINUE TO OSBERVE AND MONITOR. PT IS ABLE TO AMBULATE WITH 1 LEG. NO ISSUES.
--- NOTE | 2020-02-09 16:32 | NUR ---
Discharge instructions given. Patient verbalizes understanding of same. Discharged in stable condition via Wheelchair to Home with family. All belongings sent with pt.
== END 2020-02-09 16:20 | disposition home health service (06) | DRG 617 ==
LOC: ED 10:01 → ED-I 12:45 → ED 12:57 → MS2 12:58
PROVIDERS: Family Medicine; Nurse Practitioner; ADMIT Internal Medicine; ATTEND Internal Medicine
PROC: 0JDR0ZZ Extraction of Left Foot Subcutaneous Tissue and Fascia, Open Approach (ICD-10-PCS; 2020-02-04)
PROC: 0LBW0ZZ Excision of Left Foot Tendon, Open Approach (ICD-10-PCS; 2020-02-04)
PROC: 0Y6J0Z1 Detachment at Left Lower Leg, High, Open Approach (ICD-10-PCS; principal; 2020-02-06)
PROC: 02HV33Z Insertion of Infusion Device into Superior Vena Cava, Percutaneous Approach (ICD-10-PCS; 2020-02-06)
PROC: B518ZZA Fluoroscopy of Superior Vena Cava, Guidance (ICD-10-PCS; 2020-02-06)
DX: E11.69 Type 2 diabetes mellitus with other specified complication (principal); M86.472 Chronic osteomyelitis with draining sinus, left ankle and foot; L02.612 Cutaneous abscess of left foot; L97.429 Non-pressure chronic ulcer of left heel and midfoot with unspecified severity; E11.51 Type 2 diabetes mellitus with diabetic peripheral angiopathy without gangrene; E11.621 Type 2 diabetes mellitus with foot ulcer; E11.65 Type 2 diabetes mellitus with hyperglycemia; E87.6 Hypokalemia; I10 Essential (primary) hypertension; G89.4 Chronic pain syndrome; E83.42 Hypomagnesemia; M19.90 Unspecified osteoarthritis, unspecified site; B95.61 Methicillin susceptible Staphylococcus aureus infection as the cause of diseases classified elsewhere; Z98.62 Peripheral vascular angioplasty status; Z89.432 Acquired absence of left foot; Z87.891 Personal history of nicotine dependence; Z79.4 Long term (current) use of insulin; Z79.891 Long term (current) use of opiate analgesic; Z20.828 Contact with and (suspected) exposure to other viral communicable diseases
CPT/HCPCS: J0131; J1650; J3370; J3475

== ENCOUNTER 2020-04-23 18:01 | Inpatient (IN) | payer MEDICARE ==
[~2020-04-23] VITALS: Ht 182.9 cm; Wt 96.6 kg
[~2020-04-23 18:01] MED LIST changes: +ALPRAZOLAM0.5 M2 PO; +BACTRIM DS1 TAB PO; +GABAPENTIN300 M2 PO; +HYDROMORPHONE HC2 MG PO; +NOVOLOG MIX SC; +POT CHLORIDE20 ME3 PO
[2020-04-23 19:57] LABS: IMMATURE GRANULOCYTES 0.8 % (0.0-5.0); MEAN CELL VOLUME 96.1 fL CALC (80.0-100.0); MEAN CORPUSCULAR HGB 31.6 pG CALC (26.0-32.0); MEAN CORPUSCULAR HGB CONC 32.8 g/dL CAL (32.0-36.0); NEUT# 8.3 thou/uL (1.82-7.42); RED BLOOD COUNT 4.12 mill/uL (4.70-6.10); RED CELL DISTRI WIDTH 13.6 % (11.5-15.5)
[2020-04-23 19:58] LABS: HEMATOCRIT 39.6 % (39.0-50.0)
[2020-04-23 20:15] LABS: ALKALINE PHOSPHATASE 109 u/l (38-126); BILIRUBIN, TOTAL 0.5 mg/dL (0.0-1.4); BUN 15 mg/dL (9-20); BUN/CREATININE RATIO 21 (12-20 (CALC)); CARBON DIOXIDE 28 mmol/l (22-30); CHLORIDE 102 mmol/l (95-108); CREATININE 0.7 mg/dL (0.7-1.3); GFR > 60 ML/MIN (>=60 (CALC)); GFR FOR AFR.AMER. > 60 ML/MIN (>=60 (CALC)); SGOT/AST 11 u/l (17-59); SODIUM 137 mmol/l (137-146)
[2020-04-23 20:17] LABS: ALBUMIN 3.7 g/dL (3.2-5.0); ANION GAP 11 (6-22 (CALC)); POTASSIUM 4.1 mmol/l (3.5-5.1); TOTAL PROTEIN 6.7 g/dL (6.3-8.2)
[2020-04-23 20:31] LABS: URINE BLOOD DIPSTICK NEGATIVE (NEGATIVE); URINE COLOR YELLOW; URINE GLUCOSE - DIPSTICK NEGATIVE (NEGATIVE); URINE KETONE NEGATIVE (NEGATIVE); URINE LEUK ESTERASE NEGATIVE (NEGATIVE); URINE NITRITE - DIPSTICK NEGATIVE (Negative); URINE PH 5.5 (4.5-8.0); URINE PROTEIN - DIPSTICK TRACE mg/dL (NEG-TRACE); URINE SPECIFIC GRAVITY >=1.030
[2020-04-23 20:33] LABS: URINE BILIRUBIN - DIPSTICK SMALL (NEGATIVE)
[2020-04-24] VITALS (11 sets, daily range): BP systolic 103–153; BP diastolic 63–94
[2020-04-24 05:47] LABS: HEMATOCRIT 37.3 % (39.0-50.0); HEMOGLOBIN 12.4 g/dl (14.0-18.0); IMMATURE GRANULOCYTES 0.7 % (0.0-5.0); MEAN CELL VOLUME 94.4 fL CALC (80.0-100.0); MEAN CORPUSCULAR HGB 31.4 pG CALC (26.0-32.0); MEAN CORPUSCULAR HGB CONC 33.2 g/dL CAL (32.0-36.0); NEUT# 5.37 thou/uL (1.82-7.42); RED BLOOD COUNT 3.95 mill/uL (4.70-6.10); RED CELL DISTRI WIDTH 13.4 % (11.5-15.5)
[2020-04-24 06:20] LABS: ALBUMIN 3.4 g/dL (3.2-5.0); ALKALINE PHOSPHATASE 102 u/l (38-126); ANION GAP 12 (6-22 (CALC)); BILIRUBIN, TOTAL 0.6 mg/dL (0.0-1.4); BUN 14 mg/dL (9-20); BUN/CREATININE RATIO 21 (12-20 (CALC)); CARBON DIOXIDE 28 mmol/l (22-30); CHLORIDE 103 mmol/l (95-108); CREATININE 0.7 mg/dL (0.7-1.3); GFR > 60 ML/MIN (>=60 (CALC)); GFR FOR AFR.AMER. > 60 ML/MIN (>=60 (CALC)); SGOT/AST 12 u/l (17-59); SODIUM 138 mmol/l (137-146); TOTAL PROTEIN 6.2 g/dL (6.3-8.2)
[2020-04-25] VITALS: BP 148/70
[2020-04-25 04:00] VITALS: BP 126/76
[2020-04-25 06:25] LABS: HEMATOCRIT 37.3 % (39.0-50.0); HEMOGLOBIN 12.4 g/dl (14.0-18.0); MEAN CELL VOLUME 93.7 fL CALC (80.0-100.0); MEAN CORPUSCULAR HGB 31.2 pG CALC (26.0-32.0); MEAN CORPUSCULAR HGB CONC 33.2 g/dL CAL (32.0-36.0); RED BLOOD COUNT 3.98 mill/uL (4.70-6.10); RED CELL DISTRI WIDTH 13.2 % (11.5-15.5)
[2020-04-25 06:45] LABS: ANION GAP 13 (6-22 (CALC)); BUN 15 mg/dL (9-20); BUN/CREATININE RATIO 22 (12-20 (CALC)); CARBON DIOXIDE 27 mmol/l (22-30); CHLORIDE 102 mmol/l (95-108); CREATININE 0.7 mg/dL (0.7-1.3); GFR > 60 ML/MIN (>=60 (CALC)); GFR FOR AFR.AMER. > 60 ML/MIN (>=60 (CALC)); MAGNESIUM 1.8 mg/dL (1.6-2.3); SODIUM 138 mmol/l (137-146)
[2020-04-25 11:17] VITALS: BP 146/91
[2020-04-25 14:41] VITALS: BP 134/87
[2020-04-25 16:00] VITALS: BP 141/92
[2020-04-25 19:01] VITALS: BP 139/78
[2020-04-26 04:00] VITALS: BP 126/83
[2020-04-26 06:02] LABS: HEMATOCRIT 37.5 % (39.0-50.0); HEMOGLOBIN 12.8 g/dl (14.0-18.0); IMMATURE GRANULOCYTES 0.5 % (0.0-5.0); MEAN CELL VOLUME 93.1 fL CALC (80.0-100.0); MEAN CORPUSCULAR HGB 31.8 pG CALC (26.0-32.0); MEAN CORPUSCULAR HGB CONC 34.1 g/dL CAL (32.0-36.0); NEUT# 2.67 thou/uL (1.82-7.42); RED BLOOD COUNT 4.03 mill/uL (4.70-6.10); RED CELL DISTRI WIDTH 13.1 % (11.5-15.5)
[2020-04-26 06:22] LABS: ALBUMIN 3.5 g/dL (3.2-5.0); ALKALINE PHOSPHATASE 100 u/l (38-126); ANION GAP 12 (6-22 (CALC)); BILIRUBIN, TOTAL 0.4 mg/dL (0.0-1.4); BUN 13 mg/dL (9-20); BUN/CREATININE RATIO 19 (12-20 (CALC)); CARBON DIOXIDE 26 mmol/l (22-30); CHLORIDE 105 mmol/l (95-108); CREATININE 0.7 mg/dL (0.7-1.3); GFR > 60 ML/MIN (>=60 (CALC)); GFR FOR AFR.AMER. > 60 ML/MIN (>=60 (CALC)); POTASSIUM 3.6 mmol/l (3.5-5.1); SODIUM 138 mmol/l (137-146); TOTAL PROTEIN 6.4 g/dL (6.3-8.2)
[2020-04-26 06:30] LABS: SGOT/AST 45 u/l (17-59)
[2020-04-26 08:15] VITALS: BP 130/83
[2020-04-26 19:00] VITALS: BP 148/93
[2020-04-27 04:00] VITALS: BP 124/81
[2020-04-27 06:27] LABS: ANION GAP 11 (6-22 (CALC)); BUN 13 mg/dL (9-20); BUN/CREATININE RATIO 21 (12-20 (CALC)); CARBON DIOXIDE 26 mmol/l (22-30); CHLORIDE 107 mmol/l (95-108); CREATININE 0.6 mg/dL (0.7-1.3); GFR > 60 ML/MIN (>=60 (CALC)); GFR FOR AFR.AMER. > 60 ML/MIN (>=60 (CALC)); POTASSIUM 3.4 mmol/l (3.5-5.1); SODIUM 141 mmol/l (137-146)
[2020-04-27 08:04] VITALS: BP 147/90
[2020-04-27] MEDS ORDERED: CUBICIN500 MG IV (12:17)
[2020-04-27] MEDS ORDERED: OXYCOD-APAP1 TA1 PO (12:25)
[2020-04-27 15:00] VITALS: BP 144/90
== END 2020-04-27 17:53 | disposition home or self-care (01) | DRG 623 ==
LOC: ED 18:01 → ED-I 21:20 → ED 21:27 → MS2 21:28
PROVIDERS: Emergency Medicine; Internal Medicine; Nurse Practitioner; Nurse Practitioner Family; ADMIT Internal Medicine; ATTEND Internal Medicine
PROC: 0JBQ0ZZ Excision of Right Foot Subcutaneous Tissue and Fascia, Open Approach (ICD-10-PCS; principal; 2020-04-24)
PROC: 02HV33Z Insertion of Infusion Device into Superior Vena Cava, Percutaneous Approach (ICD-10-PCS; 2020-04-27)
PROC: B5181ZA Fluoroscopy of Superior Vena Cava using Low Osmolar Contrast, Guidance (ICD-10-PCS; 2020-04-27)
DX: E11.69 Type 2 diabetes mellitus with other specified complication (principal); M86.171 Other acute osteomyelitis, right ankle and foot; S91.301A Unspecified open wound, right foot, initial encounter; E11.40 Type 2 diabetes mellitus with diabetic neuropathy, unspecified; E11.51 Type 2 diabetes mellitus with diabetic peripheral angiopathy without gangrene; I10 Essential (primary) hypertension; G89.4 Chronic pain syndrome; G43.909 Migraine, unspecified, not intractable, without status migrainosus; M19.90 Unspecified osteoarthritis, unspecified site; B95.62 Methicillin resistant Staphylococcus aureus infection as the cause of diseases classified elsewhere; F17.210 Nicotine dependence, cigarettes, uncomplicated; Z20.822 Contact with and (suspected) exposure to COVID-19; Z79.4 Long term (current) use of insulin; Z79.891 Long term (current) use of opiate analgesic; Z79.899 Other long term (current) drug therapy; Z88.6 Allergy status to analgesic agent; Z88.5 Allergy status to narcotic agent; Z88.8 Allergy status to other drugs, medicaments and biological substances; Z89.512 Acquired absence of left leg below knee; Z98.1 Arthrodesis status
CPT/HCPCS: A9579; J0131; J0878; J1650

== ENCOUNTER 2020-05-05 10:32 | Inpatient (IN) | payer MEDICARE ==
[~2020-05-05] VITALS: Ht 182.9 cm; Wt 97.0 kg
[~2020-05-05 10:32] MED LIST changes: +CUBICIN500 MG IV; +OXYCOD-APAP1 TA1 PO
--- NOTE | 2020-05-05 10:56 | NUR ---
PT TO ROOM PER W/C WITH FAMILY
[2020-05-05 11:19] LABS: HEMATOCRIT 39.8 % (39.0-50.0); HEMOGLOBIN 13.4 g/dl (14.0-18.0); IMMATURE GRANULOCYTES 0.5 % (0.0-5.0); MEAN CELL VOLUME 93.4 fL CALC (80.0-100.0); MEAN CORPUSCULAR HGB 31.5 pG CALC (26.0-32.0); MEAN CORPUSCULAR HGB CONC 33.7 g/dL CAL (32.0-36.0); NEUT# 4.03 thou/uL (1.82-7.42); RED BLOOD COUNT 4.26 mill/uL (4.70-6.10); RED CELL DISTRI WIDTH 13.2 % (11.5-15.5)
--- NOTE | 2020-05-05 11:43 | NUR ---
PATIENT RESTING QUIETLY, AT BEDSIDE.
[2020-05-05 11:45] LABS: ALBUMIN 3.8 g/dL (3.2-5.0); ALKALINE PHOSPHATASE 103 u/l (38-126); ANION GAP 12 (6-22 (CALC)); BILIRUBIN, TOTAL 0.4 mg/dL (0.0-1.4); BUN 15 mg/dL (9-20); BUN/CREATININE RATIO 21 (12-20 (CALC)); CARBON DIOXIDE 31 mmol/l (22-30); CHLORIDE 98 mmol/l (95-108); CREATININE 0.7 mg/dL (0.7-1.3); GFR > 60 ML/MIN (>=60 (CALC)); GFR FOR AFR.AMER. > 60 ML/MIN (>=60 (CALC)); POTASSIUM 3.9 mmol/l (3.5-5.1); SGOT/AST 15 u/l (17-59); SODIUM 136 mmol/l (137-146); TOTAL PROTEIN 6.8 g/dL (6.3-8.2)
[2020-05-05 11:47] LABS: ACT PARTIAL THROMBO TIME 26.5 SECONDS (20.0-32.5); PROTHROMBIN TIME 9.7 SECONDS (9.0-12.5)
--- NOTE | 2020-05-05 12:30 | NUR ---
RESTING. CALL GUTHRIE AVAILABLE.
--- NOTE | 2020-05-05 13:30 | NUR ---
PATIENT QUIET,NO DISTRESS. CALL GUTHRIE AVAILABLE.
--- NOTE | 2020-05-05 14:30 | NUR ---
MD TO BEDSIDE. PATIENT AWARE OF ADMISSION AND PLAN OF CARE
--- NOTE | 2020-05-05 15:19 | NUR ---
report called to Janelle Salazar in SBAR format.
--- NOTE | 2020-05-05 15:36 | NUR ---
PT ARRIVED TO [facility] ROOM 279 VIA BED ACCOMPAINED BY TIFFANIE MONTAÑO. INTRODUCED SELF TO PT AND DISCUSSED POC. PT IS A/O X3. ASSESSMENT AND VITALS COMPLETED. RESPIRATIONS ARE EVEN AND UNLABORED ON ROOM AIR.HEART RHYTHM NORMAL. BOWEL SOUNDS ARE ACTIVE IN ALL QUADRANTS, LAST REPORTED BM 05/05/20. RADIAL PULSES STRONG. RIGHT PEDAL PULSE WEAK.HOME WOUND VAC IN PLACE ON RIGHT FOOT, SUCTION AT 125. TUBE PATENT. PT PRESENT WITH BKA. BOTH LIMBS ELVATED WITH PILLOW X2. RIGHT UPPER ARE PICC LINE PRESENT, MEASURING IN 32.5 CIRCUMFERENCE. SITE APPEARS HEALTHY AND PATENT WITH GOOD BLOOD RETURN. SKIN IS WARM AND INTACT. PT COMPLAINS OF 9/10 PAIN IN LEFT FOOT. PT TO BE MEDICATED PER EMAR. PUBLIC SPEAKING PROFESSOR NOTFIED OF ALLERGIES, ALLERGY BAND AND FALL RISK BAND APPLIED. PT ORIENETED TO ROOM AND CALL LIGHT SYSTEM. ALL SAFTEY PRECAUTIONS ARE IN PLACE WITH ALL LIGHT IN REACH. WILL CONTINUE TO MONITOR.
--- NOTE | 2020-05-05 15:40 | NUR ---
PATIENT TRANSFERRED SAFELY TO FLOOR ROOM 279 ON BED. CHACHO UPON ARRIVAL.
[2020-05-05 15:45] VITALS: BP 127/80
--- NOTE | 2020-05-05 17:58 | NUR ---
REASSESSMENT OF PAIN RESULTING IN 11/20. MD TO BE NOTFIED OF PAIN SCALE.
--- NOTE | 2020-05-05 18:40 | NUR ---
PERSONAL WOUND VAC REMOVED AND HOSPITAL WOUND VAC APPLIED. SUCTION AT 125. TUBING PATENT
[2020-05-05 19:59] VITALS: BP 134/82
--- NOTE | 2020-05-05 20:00 | NUR ---
PT IN BED WITH EYES OPEN AND ABLE TO MAKE NEEDS KNOWN. SKIN WARM TO TOUCH. WOUND VAC IN PLACE AND RUNNING AT 125 MMHG WITH NO COMPLICATIONS NOTED. REQUESTING MEDICATIONS FOR PAIN TO RIGHT FOOT. CONTINENT OF B/B AND USES URINAL WITH NO COMPLICATIONS. CALL LIGHT WITHIN REACH. WILL CONTINUE TO OBSERVE.
--- NOTE | 2020-05-06 03:34 | NUR ---
PT IN BED WITH EYES CLOSED. MEDICATED FOR PAIN AND EFFECTIVE. WOUND VACIN PLACE WITH NO COMPLICATIONS NOTED. HOB ELEVATED AND CALLLIGTH WITHIN REACH. WILL CONTINUE TO OBSERVE.
[2020-05-06 04:05] VITALS: BP 120/78
[2020-05-06 06:06] LABS: HEMATOCRIT 37.3 % (39.0-50.0); HEMOGLOBIN 12.2 g/dl (14.0-18.0); IMMATURE GRANULOCYTES 0.5 % (0.0-5.0); MEAN CELL VOLUME 94.2 fL CALC (80.0-100.0); MEAN CORPUSCULAR HGB 30.8 pG CALC (26.0-32.0); MEAN CORPUSCULAR HGB CONC 32.7 g/dL CAL (32.0-36.0); NEUT# 2.8 thou/uL (1.82-7.42); RED BLOOD COUNT 3.96 mill/uL (4.70-6.10); RED CELL DISTRI WIDTH 13.1 % (11.5-15.5)
[2020-05-06 06:30] LABS: ANION GAP 9 (6-22 (CALC)); BUN 13 mg/dL (9-20); BUN/CREATININE RATIO 16 (12-20 (CALC)); CARBON DIOXIDE 29 mmol/l (22-30); CHLORIDE 103 mmol/l (95-108); CREATININE 0.8 mg/dL (0.7-1.3); GFR > 60 ML/MIN (>=60 (CALC)); GFR FOR AFR.AMER. > 60 ML/MIN (>=60 (CALC)); POTASSIUM 3.9 mmol/l (3.5-5.1); SODIUM 136 mmol/l (137-146)
--- NOTE | 2020-05-06 07:30 | NUR ---
RECIEVED REPORT FROM RANI GLASGOW. CARE RESUMED
--- NOTE | 2020-05-06 07:30 | NUR ---
RECIEVED REPORT FROM TIFFANIE ROLAND.CARE RESUMED.
[2020-05-06 08:37] VITALS: BP 135/82
--- NOTE | 2020-05-06 08:37 | NUR ---
PT RESTING IN SEMI FOWLERS POSITION.INTRODUCED SELF TO PT AND DICUSSED POC. PT IS A/O X3. ASSESSMENT AND VITALS COMPLETED. BP 135/82, HR 96, O2 96. RESPIRATIONS ARE EVEN AND UNLABORED ON ROOM AIR, NO DISTRESS NOTED. HEART RHYTHM NORMAL BOWEL SOUNDS ARE ACTIVE, LAST REPORTED BM 05/05/20.TIFFANY PICC INFUSING WITH IVF, SITE APPEARS HEALTHY AND PATENT.RADIAL PULSES STRONG. RIGHT PEDAL PULSE WEAK. WOUND VAC IN PLACE FROM PREVIOUS I&D. SUCTION AT 125, TUBE APPEARS PATENT. LEFT BKA NOTED. BLE ELVATED WITH PILLOWS X2. PT COMPLAINS OF 9/10 PAIN IN RLE, PT TO BE MEDCAITED PER EMAR. PT DENIES OF ANY OTHER PAINS OR DISCOMFORTS. ALL SAFETY PRECAUTIONS ARE IN PLACE WITH CALL LIGHT AND BSC IN PLACE. WILL CONTINUE TO MONITOR
--- NOTE | 2020-05-06 09:06 | NUR ---
DILAUDID ADMINISTERED FOR 9/10 PAIN IN RIGHT FOOT. PT TOLERATED WELL.
--- NOTE | 2020-05-06 09:25 | NUR ---
DR ESPINOZA AT BEDSIDE
--- NOTE | 2020-05-06 10:33 | NUR ---
REASSESSMENT OF PAIN RESULTING IN 10/20.
--- NOTE | 2020-05-06 10:38 | NUR ---
DR FINLEY AT BEDSIDE.
--- NOTE | 2020-05-06 11:54 | NUR ---
PT RESTING IN SEMI FOWLERS POSITION. REPSIRATIONS ARE EVEN AND UNLABORED ON ROOM AIR. IVF INFUSING PER ORDER, SITE APPEARS HEALTHY AND PATENT. PT COMPLAINS OF 9/10 PAIN IN RIGHT FOOT. PT MEDICATED PER EMAR. WOUND VAC IN PLACE WIHT SUCTION AT 125, TUBING PATENT. PT DENIES OF ANY OTHER NEEDS AT THIS TIME. ALL [facility] PRECAUTIONS ARE IN PLACE. WILL CONTINUE TO MONITOR.
--- NOTE | 2020-05-06 12:56 | NUR ---
REASSESSMENT OF PAIN REUSLTING IN 10/20. REPSIRATIONS REMAINS EVEN AND UNLABORED
--- NOTE | 2020-05-06 14:35 | NUR ---
PT TRANSPORTED TO US VIA WHEELCHAIR IN STABLE CONDITION ACCOMPAINED BY SANIA LAMB
--- NOTE | 2020-05-06 14:41 | NUR ---
PT TRANSPORTED BACK TO ROOM 279 IN STABLE CONDITON. PT ASSISTED BACK INTO BED. WOUND VAC RECONEECTED. SUCTION AT 125, TUBING PATENT. DRESSING REMAINS CDI. WILL CONTINUE TO MONITOR.
--- NOTE | 2020-05-06 15:47 | NUR ---
REASSESSMENT OF PAIN RESUTLING IN 11/20. RESPIRATIONS ARE EVEN AND UNLABORED ON ROOM AIR, NO SIGNS OF ANY PAINS OR DISCOMFORTS NOTED. WOUND VAC ON RIGHT FOOT, SUCTION AT 125, TUBING PATENT. PICC LINE IN TIFFANY SALINE LOCKED ORDERED.PT DENIES OF ANY PAINS OR DISCOMFORTS AT THIS TIME. ALL [facility] PRECAUTIONS ARE IN PLACE WITH CALL LIGHT IN REACH. WILL CONTINUE TO MONITOR.
[2020-05-06 16:00] VITALS: BP 141/86
--- NOTE | 2020-05-06 19:30 | NUR ---
RTECEIVED REPORT FOR THIS PT IN BED WITH EYES OPEN AND ABLE TO MAKE NEEDS KNOWN. RESPIRATIONS ARE EVEN AND NON LABORED. WOUND VAC IN PLACE AND WORKING WELL. HOB ELEVATED AND CALL LIGHT WITHIN REACH. WILL CONTINUE TO OBSERVE
[2020-05-06 19:51] VITALS: BP 129/86
--- NOTE | 2020-05-07 03:59 | NUR ---
PT IN BED WITH EYES CLOSED. NO S/SOF DISTRESS NOTED. MEDICATED FOR PAIN. WOUND VAC IN PLACE TO RIGHT FOOT AND NO COMPLICATIONS NOTED. PICC LINE FLUSHING WITH NO COMPLICATIONS NOTED AND DRESSING IS INTACT. ON IV ABT THERAPY WITH NO ADVERSE SIDE EFFECTS. CALL LIGHT WITHIN REACH. WILL CONTINUE TO OBSERVE.
[2020-05-07 04:00] VITALS: BP 133/83
[2020-05-07 07:52] VITALS: BP 149/93
--- NOTE | 2020-05-07 07:52 | NUR ---
PT SITTING IN BED. A&O X3. NO DISTRESS NOTED. PT C/O "THOBBING PAIN 12/21". WOUND VAC TO RT FOOT IN PLACE. SINGLE LUMEN PICC TO TIFFANY HEALTHY AND PATENT, FLUSHES WITH EASE AND DRAWS BACK BLOOD. ASSESSMENT COMPLETED. DISCUSSED POC. CALL LIGHT LEFT WITHIN REACH.
--- NOTE | 2020-05-07 08:52 | NUR ---
PT REQUESTING "WHEELCHAIR TO LEAVE". ATTEMPTED TO GIVE LAST DOSE OF ABX BEFORE LEAVING AMA, PT REFUSED. DR FINLEY AND Funmi MONTGOMERY APRN NOTIFIED.
--- NOTE | 2020-05-07 08:57 | NUR ---
PT REQUESTING TO SIT OUTSIDE AND WAIT FOR HIS . REFUSES TO WAIT IN ROOM.
--- NOTE | 2020-05-07 09:02 | NUR ---
AMA FORM SIGNED BY PT, PT UNDERSTANDS RISKS OF LEAVING Lillie PERKINS RN AT BEDSIDE WITNESS. PT ENCOURAGED TO RETURN IF NEW OR WORSENING SYMPTOMS ARISE.
--- NOTE | 2020-05-07 09:07 | NUR ---
PT TAKEN VIA WC DOWN TO LOBBY IN STABLE CONDITION . HOME WOUND VAC PLACED. SINGLE LUMEN PICC TO TIFFANY KEPT IN PLACE FOR HOME ABX THERAPY. Lillie FARMER APRN NOTIFIED.
== END 2020-05-07 09:06 | disposition left against medical advice (07) | DRG 638 ==
LOC: ED 10:32 → ED-I 12:11 → ED 12:17 → MS2 12:18 → ED-I 12:18 → MS2 14:45
PROVIDERS: Student in an Organized Health Care Education/Training Program; ADMIT Internal Medicine; ATTEND Internal Medicine
DX: E11.69 Type 2 diabetes mellitus with other specified complication (principal); L03.115 Cellulitis of right lower limb; M86.8X7 Other osteomyelitis, ankle and foot; E11.51 Type 2 diabetes mellitus with diabetic peripheral angiopathy without gangrene; I10 Essential (primary) hypertension; G89.4 Chronic pain syndrome; F17.210 Nicotine dependence, cigarettes, uncomplicated; M19.90 Unspecified osteoarthritis, unspecified site; Z79.4 Long term (current) use of insulin; Z89.512 Acquired absence of left leg below knee; Z20.822 Contact with and (suspected) exposure to COVID-19
CPT/HCPCS: J0878; J1650

== ENCOUNTER 2020-08-01 | Emergency (ER) | payer MEDICARE, MEDICAID ==
[2020-08-01 12:45] LABS: MEAN CELL VOLUME 92.8 fL CALC (80.0-100.0); MEAN CORPUSCULAR HGB 30.8 pG CALC (26.0-32.0); MEAN CORPUSCULAR HGB CONC 33.2 g/dL CAL (32.0-36.0); NEUT# 8.71 thou/uL (1.82-7.42); RED CELL DISTRI WIDTH 15.7 % (11.5-15.5)
[2020-08-01 12:46] LABS: HEMATOCRIT 46.4 % (39.0-50.0); HEMOGLOBIN 15.4 g/dl (14.0-18.0)
[2020-08-01 13:12] LABS: ALKALINE PHOSPHATASE 117 u/l (38-126); AMYLASE 57 u/l (30-110); ANION GAP 15 (6-22 (CALC)); BUN 16 mg/dL (9-20); BUN/CREATININE RATIO 17 (12-20 (CALC)); CARBON DIOXIDE 28 mmol/l (22-30); CHLORIDE 95 mmol/l (95-108); GFR > 60 ML/MIN (>=60 (CALC)); GFR FOR AFR.AMER. > 60 ML/MIN (>=60 (CALC)); POTASSIUM 3.2 mmol/l (3.5-5.1); SGOT/AST 15 u/l (17-59); SODIUM 135 mmol/l (137-146)
[2020-08-01 13:22] LABS: ALBUMIN 4.8 g/dL (3.2-5.0); BILIRUBIN, TOTAL 0.8 mg/dL (0.0-1.4)
[2020-08-01 13:24] LABS: MYOGLOBIN 39 ng/mL (0 - 121)
[2020-08-01 14:00] LABS: URINE BILIRUBIN - DIPSTICK NEGATIVE (NEGATIVE); URINE BLOOD DIPSTICK NEGATIVE (NEGATIVE); URINE COLOR BROWN; URINE GLUCOSE - DIPSTICK 500 mg/dL (NEGATIVE); URINE KETONE TRACE mg/dL (NEGATIVE); URINE LEUK ESTERASE NEGATIVE (NEGATIVE); URINE PROTEIN - DIPSTICK 30 mg/dL (NEG-TRACE); URINE SPECIFIC GRAVITY >=1.030; URINE UROBILINOGEN - DIPSTICK 0.2 E.U./dL (0.2)
[2020-08-01 14:11] LABS: URINE NITRITE - DIPSTICK NEGATIVE (Negative); URINE RBC 0-2 RBC/hpf (0-5)
[2020-08-01 14:12] LABS: URINE CALCIUM OXALATE CRYSTALS MANY lpf
[2020-08-01] MEDS ORDERED: PERCOCET1 TA4 PO (14:58)
[2020-08-01] MEDS ORDERED: ELIQUIS5 MG PO (16:40)
[2020-12-21] MEDS ORDERED: ALPRAZOLAM0.5 M2 PO (09:22)
== END 2020-08-01 17:47 | disposition left against medical advice (07) ==
PROVIDERS: Emergency Medicine
DX: A41.9 Sepsis, unspecified organism (principal); I26.99 Other pulmonary embolism without acute cor pulmonale; T87.89 Other complications of amputation stump; I10 Essential (primary) hypertension; E11.51 Type 2 diabetes mellitus with diabetic peripheral angiopathy without gangrene; F17.200 Nicotine dependence, unspecified, uncomplicated; Z79.4 Long term (current) use of insulin; Y83.5 Amputation of limb(s) as the cause of abnormal reaction of the patient, or of later complication, without mention of misadventure at the time of the procedure; Z91.19 Patient's noncompliance with other medical treatment and regimen; Z89.512 Acquired absence of left leg below knee; Z20.822 Contact with and (suspected) exposure to COVID-19
CPT/HCPCS: J1650; Q9967

== ENCOUNTER 2022-09-19 09:49 | Emergency (ER) | payer MEDICARE, MEDICAID ==
[2022-09-19] VITALS (8 sets, daily range): BP systolic 114–147; BP diastolic 76–88
[~2022-09-19] VITALS: Ht 182.9 cm; Wt 104.3 kg
[~2022-09-19 09:49] MED LIST changes: +ELIQUIS5 MG PO
[2022-09-19 10:59] LABS: BASO% 0.1 % (0-3); EOS% 0.2 % (0-8); HEMATOCRIT 43.4 % (39.0-50.0); HEMOGLOBIN 14.9 g/dl (14.0-18.0); IMMATURE GRANULOCYTES 0.4 % (0.0-5.0); LYMPH% 11.5 % (15-41); MEAN CELL VOLUME 102.1 fL CALC (80.0-100.0); MEAN CORPUSCULAR HGB 35.1 pG CALC (26.0-32.0); MEAN CORPUSCULAR HGB CONC 34.3 g/dL CAL (32.0-36.0); MONO% 4.2 % (2-13); NEUT# 9.86 thou/uL (1.82-7.42); NEUT% 83.6 % (42-76); RED BLOOD COUNT 4.25 mill/uL (4.70-6.10); RED CELL DISTRI WIDTH 12.4 % (11.5-15.5)
[2022-09-19 11:14] LABS: ACT PARTIAL THROMBO TIME 28.7 SECONDS (20.0-32.5); PROTHROMBIN TIME 10.1 SECONDS (9.0-12.5)
[2022-09-19 11:16] LABS: ALBUMIN 4.1 g/dL (3.2-5.0); ALKALINE PHOSPHATASE 157 u/l (38-126); BUN 11 mg/dL (9-20); BUN/CREATININE RATIO 14 (12-20 (CALC)); CARBON DIOXIDE 27 mmol/l (22-30); CHLORIDE 91 mmol/l (95-108); CREATININE 0.8 mg/dL (0.7-1.3); GFR FOR AFR.AMER. > 60 ML/MIN (>=60 (CALC)); GFR OTHER RACES > 60 ML/MIN (>=60 (CALC)); SODIUM 133 mmol/l (137-146); TOTAL PROTEIN 8.6 g/dL (6.3-8.2)
[2022-09-19 11:18] LABS: ANION GAP 19 (6-22 (CALC)); POTASSIUM 4.4 mmol/l (3.5-5.1); SGOT/AST 27 u/l (17-59)
[2022-09-19 11:28] LABS: ETHYL ALCOHOL 0 mg/dl (0-30)
--- NOTE | 2022-09-22 16:41 | NUR ---
FINAL BLOOD CULTURE RESULTS CALLED TO DR SHOEMAKER. 04/16 [facility] HOMINIS. CONTAMINATION.
== END 2022-09-19 12:31 | disposition left against medical advice (07) ==
LOC: ED 09:49
PROVIDERS: Family Medicine
DX: A41.9 Sepsis, unspecified organism (principal); E11.52 Type 2 diabetes mellitus with diabetic peripheral angiopathy with gangrene; A48.0 Gas gangrene; E11.621 Type 2 diabetes mellitus with foot ulcer; L97.419 Non-pressure chronic ulcer of right heel and midfoot with unspecified severity; L03.115 Cellulitis of right lower limb; I10 Essential (primary) hypertension; G89.4 Chronic pain syndrome; F17.200 Nicotine dependence, unspecified, uncomplicated; Z53.29 Procedure and treatment not carried out because of patient's decision for other reasons; Z79.4 Long term (current) use of insulin; Z89.512 Acquired absence of left leg below knee